=== PATIENT | male | born 1945 | race Caucasian/White ===

== ENCOUNTER 2018-11-10 18:49 | Inpatient (IN) ==
[2018-11-10] MEDS ORDERED: ZOFRAN ODT PO ONE (19:34)
--- NOTE | 2018-11-10 20:05 | Diag Imaging Result Doc PS360 ---
EXAM: CHEST-PORTABLE 11/10/2018 HISTORY: fall, weakness TECHNIQUE: AP portable at at 1956 COMMENT: There is cardiomegaly. There is ill-defined opacity in both lungs particularly in the lower lung field and particularly in the right base. There are no previous studies. There are sternotomy wires. IMPRESSION: Cardiomegaly. Pulmonary edema. Electronically signed by Marcel Solares 11/10/2018 8:03 PM
[2018-11-10] MEDS ORDERED: LASIX IV ONE (20:12)
[2018-11-10 21:10] LABS: URINE SOURCE CATH
[2018-11-10 21:13] LABS: BASO# 0.08 X1000 (0.0-0.2); BASO% 0.6 % (0.0-0.8); EOS# 0.08 X1000 (0.0-0.7); EOS% 0.6 % (0.0-10.0); HEMATOCRIT 35.9 % (42.0-52.0); HEMOGLOBIN 9.3 g/dL (14.0-18.0); IMM GRAN# 0.06 X1000 (0.0-0.04); IMM GRAN% 0.5 % (0.0-0.5); LYMPH# 1.15 X1000 (1.2-3.4); LYMPH% 8.7 % (20.5-51.1); MCH 17.3 PG (27-31); MCHC 25.9 g/dL (33-37); MCV 66.6 FL (81-99); MONO# 1.35 X1000 (0.11-0.59); MONO% 10.2 % (1.7-9.3); MPV 9.2 FL (7.4-10.4); NEUT% 79.4 % (42.2-75.2); PLT 310 X1000 (130-400); RBC 5.39 XMIL (4.7-6.1); WBC 13.22 X1000 (4.8-10.8)
[2018-11-10 21:24] LABS: BILIRUBIN URINE NEGATIVE (NEGATIVE); BLOOD URINE NEGATIVE (NEGATIVE); COLOR YELLOW; GLUCOSE URINE 70 mg/dL (NEGATIVE); KETONE URINE NEGATIVE (NEGATIVE); LEUKOCYTES URINE NEGATIVE (NEGATIVE); NITRITE URINE NEGATIVE (NEGATIVE); PROTEIN URINE 50 mg/dL (NEGATIVE); TURBIDITY URINE CLEAR (CLEAR); UROBILINOGEN URINE 3 mg/dL (NORMAL)
[2018-11-10 21:28] LABS: UR EPITHELIAL CELLS <10 /HPF (<10); URINE BACTERIA NEGATIVE /HPF; URINE RBC <10 /HPF (<10); URINE WBC <10 /HPF (<10)
[2018-11-10 21:36] LABS: URINE CASTS WHITE CELL PRESENT; URINE CRYSTALS NONE SEEN; URINE YEAST NONE SEEN
[2018-11-10 21:43] LABS: ALB/GLOB RATIO 1.4; ALBUMIN 3.4 g/dL (3.5-5.0); CALCIUM 8.7 mg/dL (8.8-10.2); CREATININE 1.2 mg/dL (0.7-1.2); TOTAL BILIRUBIN 0.33 mg/dL (0.20-1.00); TOTAL PROTEIN 5.9 g/dL (6.3-8.3)
[2018-11-10 21:46] LABS: POTASSIUM 6.1 mmol/L (3.5-5.1)
[2018-11-10] MEDS ORDERED: HUMULIN R IV ONE ×2 (21:49→22:49)
[2018-11-10] MEDS ORDERED: CALCIUM GLUCONATE IV PUSH ONE (21:49)
[2018-11-10] MEDS ORDERED: D50W SYRINGE IV ONE (21:50)
[2018-11-10] MEDS ORDERED: SODIUM BICARBONATE 8.4% IV PUSH ONE ×2 (21:51→22:01)
[2018-11-10] MEDS ORDERED: ALBUTEROL 0.5% INH CONC FOR HYPERKALEMIA INH ONE (21:52)
[2018-11-10] MEDS ORDERED: CARDIZEM IV ONE (22:48)
[2018-11-10] MEDS ORDERED: TYLENOL PO PRN (22:55)
[2018-11-10] MEDS ORDERED: CARDIZEM 100 MG/NS 100 MG/100 ML IVPB IV SCH (23:00)
[2018-11-10] MEDS: XOPENEX NEB INH PRN (23:05)
--- NOTE | 2018-11-10 23:06 | PROVIDER DOCUMENTATION ---
This chart was entered by Keily Pena Scribe, acting as scribe for Neto Varghese MD. HPI-General Adult - General Stated Complaint: fall Time Seen by Provider: 11/10/18 19:36 Source: patient, EMS Allergies/Adverse Reactions: Patient Allergies Allergy/AdvReac Type Severity Reaction Status Date / Time No Known Allergies Allergy Verified 11/10/18 19:34 - History of Present Illness -Gen Adult Nature of Presenting Problems: pt is a 73 yr old male presenting via EMS from [facility] post fall, EMS reports pt fell/slid to floor from side of bed, and slid to floor, on arrival here pt only complains of abdominal pain and nausea. No head injury Location of Pain/Injury: reports: abdomen Pain Radiation: reports: no radiation Quality of Pain: reports: dull Severity: reports: mild Onset/Duration: reports: this evening Timing: reports: still present Context/Activities at Onset: reports: rest Modifying Factors: improves with: nothing Associated Symptoms: reports: nausea. denies: back/neck pain, joint pain, vomiting Similar Symptoms Previously?: No Recently seen or treated by another doctor?: No Review of Systems - Adult - REVIEW OF SYSTEMS - ADULT Constitutional: reports: other (weakness) Eyes: reports: no symptoms reported Ears, Nose, Mouth & Throat: reports: no symptoms reported Cardiovascular: reports: edema. denies: chest pain, palpitations, syncope Respiratory: denies: cough, shortness of breath Gastrointestinal: reports: abdominal pain, nausea. denies: vomiting Genitourinary: reports: no symptoms reported Musculoskeletal: denies: back pain, muscle aches, neck pain Integumentary: reports: no symptoms reported Neurological: denies: dizziness/vertigo, headache/migraines Psychiatric: reports: no symptoms reported Endocrine: reports: no symptoms reported Hematologic/Lymphatic: reports: no symptoms reported Allergic/Immunologic: reports: no symptoms reported All Other Systems: Reviewed and Negative Past History - Adult - PAST MEDICAL HISTORY-ADULT Review of Records: reports: Nursing Assessment Review, Medications Reviewed, Social history reviewed & non-contributory. Major Childhood Illnesses: reports: denies history Cardiovascular: reports: denies history Respiratory: reports: denies history Gastrointestinal: reports: denies history Obstetrical/Gynecological: reports: denies history Genitourinary: reports: denies history Musculoskeletal: reports: denies history Neurological: reports: denies history Endocrine/Immune: reports: denies history Other Conditions: reports: denies history - IMMUNIZATION STATUS Childhood Immunizations: See Nurse Assessment Flu Vaccine: See Nurse Assessment - FAMILY HISTORY Family History: reviewed, not pertinent - SOCIAL HISTORY Smoking: denies Substance Use: denies Living Situation: care facility Physical Exam-General - PHYSICAL EXAM-ADULT Initial Vital Signs Reviewed: Yes - CONSTITUTIONAL General Appearance: alert, moderate distress, obese - EYES Eyes: PERRL/EOMI - HEAD, EARS, NOSE, MOUTH & THROAT HENMT: normocephalic/atraumatic, moist mucous membranes - NECK Neck: non-tender, full range of motion, supple, normal inspection - RESPIRATORY Respiratory: chest non-tender, decreased breath sounds, crackles, other (on oxygen via nasal canulla) - CARDIOVASCULAR Cardiovascular: normal peripheral pulses, tachycardia, irregularly irregular - GASTROINTESTINAL (ABDOMEN) Abdominal Exam: normal bowel sounds, non tender, soft. negative: rebound, tenderness - GENITOURINARY Male Genitalia: other (scrotal edema) - LYMPHATIC Lymphatic: no adenopathy - MUSCULOSKELETAL Back Exam: no CVA tenderness, no vertebral tenderness Extremity: other (4+ bilateral lower extremity edema, 3+ RUE edema) - SKIN Integumentary: normal color, normal turgor, warm/dry - NEUROLOGIC Neurologic: grossly normal, no motor/sensory deficits - PSYCHIATRIC Psych/Mental Status: normal mood/affect Progress - PLAN OF CARE/RESULTS Progress/Plan/Lab Results: Vital Signs - 8 hr 11/10/18 18:52 Temperature 98.5 F Pulse Rate 110 H Respiratory Rate 18 Blood Pressure 146/82 O2 Sat by Pulse Oximetry 96 Orders Category Date Time Status CHEST-PORTABLE [RAD] Stat Exams 11/10/18 19:46 Ordered CBC WITH ELECTRONIC DIFF [HEME] Stat Lab 11/10/18 19:45 Uncollected CK PROFILE [SP CHEM] Stat Lab 11/10/18 19:45 Uncollected COMPREHENSIVE METABOLIC PANEL [CHEM] Stat Lab 11/10/18 19:45 Uncollected PRO B-NATRIURETIC PEPTIDE Stat Lab 11/10/18 19:45 Uncollected URINALYSIS W/POSS RFLX CULT [URINALYSIS] Stat Lab 11/10/18 19:45 Uncollected Ondansetron Odt [Zofran Odt] Med 11/10/18 19:34 Discontinued 4 mg PO NOW ONE EKG [EKG] Stat Ther 11/10/18 19:45 Ordered Result Diagrams: 11/10/18 20:51 11/10/18 20:51 - EKG 1 Time of EKG reading by physician:: 21:58 EKG Read and Signed by:: Neto Varghese EKG Interpretation (*Must complete 3 of following elements*): Abnormal ( inferoir infarct-age undetermined, anterolateral infarct-age undetermined) Rate: 118 Rhythm: afib-with rvr [place]: left QRS: normal NV Interval: normal ST Wave: normal - XRAY 1 XRAY Study: Chest Impression: Abnormal ( EXAM: CHEST-PORTABLE 11/10/2018 HISTORY: fall, weakness TECHNIQUE: AP portable at at 1955 COMMENT: There is cardiomegaly. There is ill-defined opacity in both lungs particularly in the lower lung field and particularly in the right base. There are no previous studies. There are sternotomy wires. IMPRESSION: Cardiomegaly. Pulmonary edema. Electronically signed by Marcel Solares 11/10/2018 8:03 PM 11/10/182002 Interpreting Physician: Marcel Solares MD Dictated Date/Time: 11/10/182001) - CONSULTS/PCP/HOSPITALIST Notification #1 *Consult/PCP/Hospitalist*: Dr. Zavala Time Discussed: 22:30 Consult Disposition: Admit Departure - Departure Date of Disposition Decision: 11/10/18 Time of Disposition Decision: 23:06 DIAGNOSIS: Hyperkalemia Pulmonary edema Qualifiers: Chronicity: acute Qualified Code(s): J81.0 - Acute pulmonary edema Fluid overload Qualifiers: Hypervolemia type: unspecified Qualified Code(s): E87.70 - Fluid overload, unspecified Disposition: ADMITTED INPATIENT 09 Certified Medical Emergency: Emergent Condition: Critical - Critical Care Note This patient required my direct & personal management of CC.: Yes Total Time (mins): 60 Critical Care Statement: This patient required my direct personal management to treat or rule out processes, the absence of which, could potentiallly result in sudden, clinically significant life or limb threatening deterioration. Attestation - Physician/ PABLITO Attestation The physician spent face to face time with patient:: Yes Advanced Practice Provider documentation review:: Supervising physician onsite and consulted in the evaluation and care of this patient. The physician did have a face to face encounter with the patient. This chart was documented by the indicated scribe, (Keily Pena Scribe) and accurately reflects the services I performed and decisions made by Halima duong Kofi X., MD, as attested by the provider's signature.
[2018-11-10 23:10] LABS: ALLEN TEST YES; BE 6.5 mmoll (-3.0-3.0); BLOOD TYPE ARTERIAL; HCO3-(ACT) 29.9 mmoll (20.0-26.0); METHB 1.2 % (0.0-1.5); MODALITY CANNULA; O2(CT) 11.9 mL/dL (15.0-23.0); O2HB 91.2 % (95.0-99.0); PO2(98.6) 67 mmHg (60-100); SAMPLE BLOOD; SAO2 94.3 % (95.0-100.0); THB 9.2 g/dL (11.5-17.4); pH(98.6) 7.33 (7.35-7.45)
[2018-11-10 23:15] LABS: PCO2(98.6) 64 mmHg (35-45)
[2018-11-10 23:31] LABS: HEMOGLOBIN A1C 10.2 % (4.8-6.0)
--- NOTE | 2018-11-11 02:23 | HISTORY AND PHYSICAL ---
PRIMARY CARE PROVIDER: No primary care provider noted. CHIEF COMPLAINT: Fall at long-term. HISTORY OF PRESENT ILLNESS: Mr. Herrera is a 73-year-old male who came to our emergency room reportedly from [facility] after having a fall. He is a very poor historian. He is lethargic, disoriented times 3. He did note that he was having some abdominal pain and nausea. Denied any other symptoms. Was mostly nonconversant during the interview. He could not give any past medical history other than he believes he has been told he has atrial fibrillation. A current diagnosis list from [facility] showed vitamin D deficiency, hypertensive heart disease, heart failure, COPD, diabetes mellitus type 2, chronic atrial fibrillation, cardiomegaly, malignant neoplasm of the prostate, iron deficiency anemia. Previous surgical history was noted as coronary artery bypass graft. Other surgeries are unknown. SOCIAL HISTORY: Is at [facility] in rehab from what I understand. I am unsure of his living situation. He has a history of tobacco use. I am unsure if he currently smokes. I am unsure about his alcohol status. ALLERGIES: No known drug allergies. HOME MEDICATIONS: A list was not able to be obtained. An order was placed for Nursing to obtain a list of home medicines from [facility] when possible. REVIEW OF SYSTEMS: The patient said he had abdominal pain and nausea. He neither denied nor confirmed any other complaints. Pertinent positives for admission are above in the HPI. All other systems could not thoroughly be reviewed. PHYSICAL EXAMINATION: VITAL SIGNS: Temperature 98.5, pulse 150, atrial fibrillation, respirations 26 , oxygen 91% on 3 L nasal cannula, blood pressure 136/72. GENERAL: Chronically ill-appearing 73-year-old male lying in the ER stretcher. He is lethargic, disoriented times 3. He is in no acute distress at this time. HEENT: Head is atraumatic, normocephalic. Pupils equal, round, reactive to light. Extraocular eye movements intact. Sclerae are anicteric. Conjunctiva is mildly pale. Oral mucosa is moist. NECK: Supple. Mild JVD. Trachea is midline. No cervical lymphadenopathy. CARDIAC: Irregularly irregular. Tachycardic. No murmurs, gallops, rubs. LUNGS: Crepitations noted throughout bilateral lung bases. Decreased bilaterally. Expiratory wheeze. No rhonchi. No rales. Symmetric rise and fall with respirations. ABDOMEN: Protuberant, soft, nondistended, nontender. Nonpitting edema noted to abdominal wall. Bowel sounds hypoactive all 4 quadrants. No pulsatile mass. No organomegaly. EXTREMITIES: Two-plus pitting edema to bilateral upper extremities, 3-plus pitting edema to bilateral lower extremities. Two-plus pedal pulses bilaterally. GENITOURINARY: No bladder distention. Johnson catheter to be placed. Scrotal edema noted. Otherwise deferred. NEUROLOGICAL: Lethargic, disoriented times 3. Cranial nerves II through XII could not be fully evaluated. SKIN: Warm, dry, intact. No acute lesions or rash. Mildly pale. DIAGNOSTIC DATA: CT of the head is pending. Chest x-ray shows cardiomegaly with increased pulmonary vascular congestion right greater than left. LABORATORY DATA: WBC 13.22. Hemoglobin 9.3. Hematocrit 35.9. Platelet count 310. ABG: pH 7.33, pCO2 of 64, pO2 of 67, bicarbonate 29.9 on 3 L nasal cannula. Sodium 139. Potassium 6.1. Chloride 99. Carbon dioxide 29. BUN 28. Creatinine 1.2. Glucose 329. ProBNP 4756. Urine unremarkable. ASSESSMENT AND PLAN: 1. Congestive heart failure with exacerbation. Patient does not have an echocardiogram on file. He actually has no records at this hospital. We will order echocardiogram in the a.m. to evaluate ejection fraction. I am unsure what home medications he takes at this point. Nursing to work on a list of reconciling home medications. He was given 80 mg of Lasix in the emergency room. We will continue Lasix 40 mg IV q.12 hours. Restart other home medications when available. We will review echocardiogram. 2. Respiratory acidosis. Patient is hypercapneic. He had noted myoclonus on examination and was disoriented times 3. We will start BiPAP at this time to hyperventilate the patient. He was partially compensated on his blood gas. Hopefully, as the patient diureses with the Lasix his lab values will come back into line. 3. Metabolic encephalopathy. See above. 4. Hyperkalemia. The patient's potassium was 6.1. He was treated in the emergency room with D50, insulin, albuterol, sodium bicarbonate and calcium gluconate for cardiac muscle stabilization. EKG was obtained that showed the patient to be in atrial fibrillation with a rapid ventricular rate. 5. Atrial fibrillation with a rapid ventricular rate. Cardizem 10 mg IV push will be given in the emergency room and then started on Cardizem 5 mg IV per drip to be titrated for a heart rate less than 110. I am unsure if the patient is chronically anticoagulated. We will defer at this time as he has fallen at the long-term and a CT scan has not been obtained of his head. 6. Diabetes mellitus type 2 with hyperglycemia. Check hemoglobin A1c. Fingerstick blood sugars q.4 hours. Further recommendations per patient clinical course. Dictated by ALEXA Castellanos for Cathryn Zavala MD cc: ALEXA Castellanos MD Independent exam performed at bedside with HOTEL RECEPTIONIST. Pt was notably had diffuse wheezing with decreased air entry and crepitations. Consider Digoxin IV if HR still elevated and hyperkalemia corrected. Recheck BMP. Suspect hyperkalemia could be due to Type 4 RTA if it recurs. Check ABG in the a.m. MTDD
[2018-11-11] MEDS: HUMALOG SUBQ SCH ×6 (02:26→21:00)
[2018-11-11 06:25] LABS: BASO% 0.9 % (0.0-0.8); EOS# 0.03 X1000 (0.0-0.7); EOS% 0.3 % (0.0-10.0); HEMATOCRIT 34.2 % (42.0-52.0); HEMOGLOBIN 8.9 g/dL (14.0-18.0); IMM GRAN# 0.05 X1000 (0.0-0.04); IMM GRAN% 0.4 % (0.0-0.5); LYMPH# 0.85 X1000 (1.2-3.4); LYMPH% 7.6 % (20.5-51.1); MCH 17.5 PG (27-31); MCV 67.3 FL (81-99); MONO# 1.42 X1000 (0.11-0.59); MONO% 12.7 % (1.7-9.3); MPV 9.7 FL (7.4-10.4); NEUT# 8.74 X1000 (1.4-6.5); NEUT% 78.1 % (42.2-75.2); PLT 289 X1000 (130-400); RBC 5.08 XMIL (4.7-6.1); RDW 23.4 % (11.5-14.5); WBC 11.19 X1000 (4.8-10.8)
[2018-11-11 07:12] LABS: CALCIUM 8.3 mg/dL (8.8-10.2); CREATININE 1.3 mg/dL (0.7-1.2); POTASSIUM 5.5 mmol/L (3.5-5.1)
[2018-11-11 07:23] LABS: MAGNESIUM 2.3 mg/dL (1.5-2.7)
[2018-11-11] MEDS: XOPENEX NEB INH PRN ×4 (07:31→23:30)
--- NOTE | 2018-11-11 07:41 | Diag Imaging Result Doc PS360 ---
EXAM: CT HEAD W/O CONTRAST 11/10/2018 HISTORY: fall, AMS TECHNIQUE: This exam was performed using automated exposure control, adjustment of mA or kV according to patient size, and/or use of iterative reconstruction technique. COMMENT: There is moderate to severe generalized cerebral atrophy. There is no evidence of mass effect, bleed, abnormal extra-axial fluid collection, or hydrocephalus. There is calcification in the left vertebral and basilar as well as both internal carotid arteries. The calvarium is intact. The visualized paranasal sinuses are clear. There are no previous studies. IMPRESSION: No evidence of acute intracranial disease. Electronically signed by Marcel Solares 11/11/2018 7:39 AM
[2018-11-11] MEDS: LASIX IV SCH ×2 (10:07→23:34)
[2018-11-11] MEDS ORDERED: LEVOPHED 8 MG in D5 1/2 NS 250 ML IV SCH (12:15)
[2018-11-11] MEDS ORDERED: BUSPAR PO PRN (12:17)
[2018-11-11] MEDS: PLAVIX PO SCH (12:30)
[2018-11-11] MEDS ORDERED: NICODERM PATCH TD SCH (12:30)
[2018-11-11] MEDS ORDERED: CELEXA PO SCH (12:30)
[2018-11-11] MEDS ORDERED: NON-FORMULARY MED (Buprenorphine [Butrans] 1 EACH) TD SCH (12:30)
[2018-11-11 14:53] LABS: ALB/GLOB RATIO 1.2; ALBUMIN 2.8 g/dL (3.5-5.0); CALCIUM 8.2 mg/dL (8.8-10.2); CREATININE 1.4 mg/dL (0.7-1.2); POTASSIUM 5.4 mmol/L (3.5-5.1); TOTAL BILIRUBIN 0.38 mg/dL (0.20-1.00); TOTAL PROTEIN 5.2 g/dL (6.3-8.3)
--- NOTE | 2018-11-11 19:24 | PROGRESS NOTE ---
DATE: 11/11/2018 Patient seen and examined in the ER a 71-year-old male who is on BiPAP, he is somewhat confused, frequently demands BiPAP be taken off. PHYSICAL: Is afebrile, pulse 74,. Respiratory 16 to 24, BP 94/56.General: Patient is obese male who is in moderate distress from a respiratory standpoint, he is lethargic, disoriented chronically ill appearing . HEENT: Normocephalic. Neck: Supple. No current JVD. No masses. CV: Irregular rate irregular rhythm currently he is rate controlled, he had been in atrial fibrillation earlier, we will continue to try to wean down his Cardizem as tolerated. Hopefully this will improve his blood pressure. Chest: Clear nonlabored although decreased. He is not currently having any wheezing although given his body habitus and BiPAP it is difficult to auscultate. Abdomen: Soft, obese, nondistended. Extremities: He is noted move all extremities. He has 2+ edema in the bilateral lower extremities as well as upper extremity. Neuro: He is awake, he is confused, disoriented. ASSESSMENT: 1. Congestive heart failure exacerbation . 2. Atrial fibrillation with rapid ventricular response currently he is rate controlled. We are attempting to wean his Cardizem. 3. Hyperkalemia improved. 4. Metabolic encephalopathy. PLAN: Will continue patient the hospital, continue BiPAP, continue to follow, hopefully he will continue to improve we may have to sedate him to continue BiPAP, will follow. Greater than 30 minutes was spent in total care. cc: Norris Martínez MD
[2018-11-11] MEDS ORDERED: SEROQUEL PO SCH (21:00)
[2018-11-11] MEDS: SEROQUEL PO SCH (23:34)
[2018-11-12] MEDS: CARDIZEM 100 MG in NS 80 ML IV SCH ×2 (01:28→12:18)
[2018-11-12] MEDS: PATIENT'S OWN MED PO SCH ×3 (02:06→21:16)
[2018-11-12] MEDS: HUMALOG SUBQ SCH ×6 (02:06→21:13)
[2018-11-12] MEDS: XOPENEX NEB INH PRN ×2 (03:11→07:19)
[2018-11-12 04:54] LABS: ALLEN TEST YES; BE 8.9 mmoll (-3.0-3.0); BLOOD TYPE ARTERIAL; HCO3-(ACT) 31.8 mmoll (20.0-26.0); METHB 1.2 % (0.0-1.5); O2(CT) 13.2 mL/dL (15.0-23.0); O2HB 94.4 % (95.0-99.0); PO2(98.6) 81 mmHg (60-100); SAMPLE BLOOD; SAO2 97.3 % (95.0-100.0); THB 9.9 g/dL (11.5-17.4); pH(98.6) 7.41 (7.35-7.45)
[2018-11-12 04:56] LABS: MODALITY BI PAP; PCO2(98.6) 55 mmHg (35-45)
[2018-11-12] MEDS: LASIX IV SCH (08:27)
[2018-11-12] MEDS: NICODERM PATCH TD SCH (08:33)
--- NOTE | 2018-11-12 09:36 | ECHO REPORT ---
ORDER DATE: 11/11/2018 MEASUREMENTS: Left ventricular end-diastolic diameter 5.4, end-systolic 3.9, septal thickness 1.4, posterior wall thickness 1.2, aortic root 3.4, left atrium 4.2. SUMMARY: 1. Technically difficult study due to limited acoustic window quality. 2. The aortic valve is trileaflet and demonstrates mild to moderate sclerosis with mildly reduced aortic valve leaflet mobility. The aortic valve area by Doppler is 1.7 cm2. Mild aortic stenosis is suggested. Mitral and tricuspid valves are without evidence of structural abnormality with mild mitral regurgitation and mild tricuspid regurgitation. Pulmonic valve is not well demonstrated. The estimated systolic PA pressure by Doppler is 40 to 45 mmHg, suggesting mild pulmonary hypertension. The aortic root is normal in size. 3. Normal left ventricular chamber size with mild concentric left ventricular hypertrophy suggested. The estimated left ventricular ejection fraction is approximately 50%. No obvious wall motion abnormality can be appreciated. The left atrium is mildly enlarged. The right atrium and right ventricle grossly normal in size with grossly preserved right ventricular systolic function. 4. No pericardial effusion. 5. Appearance of inferior vena cava suggests elevated central venous pressure. cc: MD Brian Larsen CRNP
[2018-11-12] MEDS: PLAVIX PO SCH (09:53)
[2018-11-12] MEDS: CELEXA PO SCH (09:53)
[2018-11-12 10:25] LABS: BASO# 0.05 X1000 (0.0-0.2); BASO% 0.5 % (0.0-0.8); EOS# 0.17 X1000 (0.0-0.7); EOS% 1.8 % (0.0-10.0); HEMATOCRIT 31.2 % (42.0-52.0); HEMOGLOBIN 8.2 g/dL (14.0-18.0); IMM GRAN# 0.02 X1000 (0.0-0.04); IMM GRAN% 0.2 % (0.0-0.5); LYMPH# 0.83 X1000 (1.2-3.4); LYMPH% 8.6 % (20.5-51.1); MCH 17.8 PG (27-31); MCHC 26.3 g/dL (33-37); MCV 67.8 FL (81-99); MONO# 1.03 X1000 (0.11-0.59); MONO% 10.7 % (1.7-9.3); MPV 9.4 FL (7.4-10.4); NEUT# 7.54 X1000 (1.4-6.5); NEUT% 78.2 % (42.2-75.2); PLT 228 X1000 (130-400); RDW 24.6 % (11.5-14.5); WBC 9.64 X1000 (4.8-10.8)
[2018-11-12 11:02] LABS: CALCIUM 7.9 mg/dL (8.8-10.2); CREATININE 1.2 mg/dL (0.7-1.2)
[2018-11-12] MEDS: ASPIRIN PO SCH (15:25)
--- NOTE | 2018-11-12 15:26 | PROGRESS NOTE ---
DATE: 11/12/2018 INTERVAL HISTORY: The patient on BiPAP with slightly improved respiratory status. Remains quite encephalopathic. He withdraws to noxious stimuli occasionally, slight movement of voice, but nothing purposeful and follows no commands. Afebrile. No other acute events overnight. REVIEW OF SYSTEMS: Unable to obtain secondary to patient mental status. LABORATORY: WBC 9.6, hemoglobin 8.2, hematocrit 31.2, and platelets 228,000. ABG with pH 7.4, CO2 55, PO2 81, O2 saturation 97.3 on 40% oxygen via BiPAP. Potassium 5, sodium 140, BUN 32, creatinine 1.2, glucose 132. PHYSICAL EXAMINATION: Vitals: T-max 98.6 degrees. Lowest temperature 96.6 degrees, pulse 82, respirations 15, blood pressure 129/74, O2 saturation 95% on 40% BiPAP. General: No acute distress. HEENT: Normocephalic, atraumatic. Moist mucous membranes. No cervical adenopathy. Cardiovascular: irregular rhythm. normal rate. No murmurs, rubs, or gallops. Pulmonary: Decreased air entry throughout. Scattered rhonchi and bibasilar crackles. Abdomen: Soft , nontender, and nondistended. Bowel sounds decreased but positive. Extremities: Peripheral pulses decreased but intact. No clubbing or cyanosis. Trace lower extremity edema bilaterally. Psychiatric: Minimally responsive to voice and withdraws to noxious stimuli. Occasional nonpurposeful movement of all extremities, but does not follow commands or speak. Neurologic: Exam limited by patient's mental status. Pupils equal, round, and reactive to light. No facial asymmetry. Occasional nonpurposeful movement of all extremities. No focal deficit identified. Skin: No new rashes or lesions identified. ASSESSMENT AND PLAN: 1. Acute hypoxic and acute on chronic hypercapnic respiratory failure: Multifactorial with acute on chronic diastolic congestive heart failure, COPD with likely exacerbation , and acute pulmonary edema. No wheezing today and hypercapnia improved on this morning' s ABG. Some improvement in oxygenation with diuresis. We will continue b.i.d. Lasix and wean BiPAP as possible. Continue nebulizer treatments. Given improvement in hypercapnia and lack of wheezing currently, we will defer steroid treatment at this time. Continue to monitor closely in the ICU. 2. Atrial fibrillation with rapid ventricular response, rate controlled on diltiazem drip. Continue to monitor. Await Cardiology recommendations. 3. Hyperkalemia. Initial potassium 6.1, but now resolved with a potassium of 5.0 this morning. 4. Likely CKD 3. Creatinine 1.2 and largely stable. No baseline for confirmation, but suspect this is CKD rather than an acute kidney injury. 5. Diabetes. Reasonable glucose control on current sliding scale insulin. Continue to monitor. 6. Tobacco abuse. Continue nicotine patch. 7. Coronary artery disease. We will restart aspirin and Plavix when able to take p.o. 8. Anemia, stable hemoglobin and hematocrit. Iron studies pending. No signs or symptoms of acute bleeding at this time. Continue to monitor blood counts. 9. Deep vein thrombosis prophylaxis. SCD's. [facility]
--- NOTE | 2018-11-12 19:12 | Diag Imaging Result Doc PS360 ---
EXAM: CHEST-PORTABLE 11/12/2018 HISTORY: resp failure TECHNIQUE: AP portable at 1903 COMMENT: There is cardiomegaly. There is ill-defined opacity in both lower lobes obscuring the hemidiaphragms bilaterally. This is worse than on 11/10/2018. IMPRESSION: Worsened pulmonary edema and/or pneumonia. Electronically signed by Marcel Solares 11/12/2018 7:08 PM
[2018-11-12] MEDS: SEROQUEL PO SCH (21:12)
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
[2018-11-13] MEDS: HUMALOG SUBQ SCH ×6 (00:08→21:59)
[2018-11-13] MEDS: CARDIZEM 100 MG in NS 80 ML IV SCH (04:21)
--- NOTE | 2018-11-13 07:05 | EKG Report ---
Test Performed on : 11/11/2018 06:22:22 AM Test Reason : chest pain Blood Pressure : / mmHG Vent. Rate : 080 BPM Atrial Rate : 326 BPM P-R Int : 000 ms QRS Dur : 102 ms QT Int : 380 ms P-R-T Axes : 000 -38 116 degrees QTc Int : 438 ms Atrial fibrillation. Left axis deviation Inferior infarct (cited on or before 10-NOV-2018) Anterior infarct (cited on or before 10-NOV-2018) Abnormal ECG When compared with ECG of 10-NOV-2018 21:58, (Unconfirmed) Nonspecific T wave abnormality, worse in Anterolateral leads Confirmed by Garcia ORELLANA, Gerardo Singh ([id number]) on 11/13/2018 9:41:13 AM
--- NOTE | 2018-11-13 07:33 | EKG Report ---
Test Performed on : 11/10/2018 9:58:48 PM Test Reason : weakness Blood Pressure : / mmHG Vent. Rate : 118 BPM Atrial Rate : 096 BPM P-R Int : 000 ms QRS Dur : 102 ms QT Int : 290 ms P-R-T Axes : 000 -53 099 degrees QTc Int : 406 ms Atrial fibrillation. with rapid ventricular response. Left axis deviation Inferior infarct , age undetermined Anterolateral infarct , age undetermined Abnormal ECG No previous ECGs available Unconfirmed Result
[2018-11-13 08:24] LABS: BASO# 0.03 X1000 (0.0-0.2); BASO% 0.4 % (0.0-0.8); EOS# 0.17 X1000 (0.0-0.7); EOS% 2.1 % (0.0-10.0); IMM GRAN# 0.02 X1000 (0.0-0.04); IMM GRAN% 0.3 % (0.0-0.5); LYMPH# 0.86 X1000 (1.2-3.4); LYMPH% 10.9 % (20.5-51.1); MCH 17.6 PG (27-31); MCHC 25.8 g/dL (33-37); MCV 68.1 FL (81-99); MONO# 0.75 X1000 (0.11-0.59); MONO% 9.5 % (1.7-9.3); MPV 9.1 FL (7.4-10.4); NEUT# 6.09 X1000 (1.4-6.5); NEUT% 76.8 % (42.2-75.2); PLT 220 X1000 (130-400); RBC 4.55 XMIL (4.7-6.1); RDW 24.8 % (11.5-14.5); WBC 7.92 X1000 (4.8-10.8)
[2018-11-13 08:32] LABS: AGAP 12; BUN 27 mg/dL (8-22); CHLORIDE 99 mmol/L (98-107); COSMO 285; ESTIMATED GFR > 60; GLUCOSE 109 mg/dL (70-104); IRON SATURATION 6 %; POTASSIUM 4.9 mmol/L (3.5-5.1); SODIUM 140 mmol/L (136-145); TCO2 29 mmol/L (25-35); TIBC 283 ug/dL; TOTAL IRON 18 ug/dL (53-167); UNBOUND IRON 265 ug/dL (112-346)
[2018-11-13] MEDS: ASPIRIN PO SCH (08:43)
[2018-11-13] MEDS: LASIX IV SCH (08:44)
[2018-11-13] MEDS: NICODERM PATCH TD SCH (08:44)
[2018-11-13] MEDS: PATIENT'S OWN MED PO SCH ×2 (08:44→21:57)
[2018-11-13] MEDS: PLAVIX PO SCH (08:44)
[2018-11-13] MEDS: CELEXA PO SCH (08:45)
[2018-11-13 08:48] LABS: ANISOCYTOSIS 2+; BANDS 2 % (0-1); EOS 4 % (1-10); LYMPHS 14 % (21-51); SEGS 80 % (42-75)
[2018-11-13 08:49] LABS: HYPOCHROM 2+; MICROCYTOSIS 3+; POIKILOCYTOSIS 1+; TARGET CELLS OCCASIONAL
[2018-11-13] MEDS ORDERED: CALMOSEPTINE OINTMENT TOP PRN (11:14)
--- NOTE | 2018-11-13 15:53 | PROGRESS NOTE ---
DATE: 11/13/2018 SUBJECTIVE: Patient is resting comfortably in bed. Not in any obvious distress. OBJECTIVE: Vital signs: Temperature 98.4 degrees, pulse 92, respirations 20, blood pressure is 101/71, oxygen saturation 94%. Cardiovascular: S1-S2, tachycardic. Respiratory: No rales or rhonchi noted. Abdomen: Soft, nontender. No masses felt. Extremities: No evidence of significant edema. LABS: WBC 7.9, hematocrit is 31, with a platelet count of 226,000. Sodium 140, potassium 4.9, chloride 99, bicarb 29, BUN 27, creatinine 1.0. ASSESSMENT AND PLAN: 1. Acute hypercapnic respiratory failure. Use BiPAP as needed to keep saturations above 90. 2. Atrial fibrillation. Continue rate controlling agent. Cardiology following. 3. Hyperkalemia has been resolved. 4. Chronic kidney disease. Follow up on renal function. Avoid nephrotoxic agents. 5. Diabetes mellitus. Continue sliding scale insulin as well as more blood sugar monitoring. 6. Coronary artery disease. Continue antiplatelet agent. Asymptomatic. 7. Anemia. Follow up on hemoglobin, hematocrit, transfuse packed red blood cells as needed. 8. Deep vein thrombosis prophylaxis. Sequential compression devices. cc: Ty Isidro MD
[2018-11-13] MEDS ORDERED: LASIX IV ONE (17:01)
[2018-11-13] MEDS: TOPROL XL PO SCH (17:54)
--- NOTE | 2018-11-13 18:17 | PROGRESS NOTE ---
DATE: 11/13/2018 SUBJECTIVE: The patient continues without chest discomfort or shortness of breath, on supplemental oxygen per nasal cannula at 4 L/minute. OBJECTIVE: Vital Signs: Blood pressure 103/59, heart rate 90 and irregular with ECG monitor showing atrial fibrillation. He is on intravenous Cardizem at 5 mg/hour. Oxygen saturation 97% on nasal cannula oxygen at 4 L/minute. Neck: Jugular venous distention cannot be appreciated. Chest: Auscultation of the chest reveals a few inspiratory crackles in the bases. Cardiac: Exam reveals an irregular rate and rhythm. Extremities: There is no evidence of peripheral edema. DIAGNOSTIC STUDIES: Chest x-ray yesterday evening noteworthy for cardiomegaly. Obscured hemidiaphragms, more so on the right, suggesting pleural effusion and evidence of pulmonary edema and/or pneumonia. LABORATORY DATA: White blood cell count 7.9, hematocrit 31.0, hemoglobin 8.0, platelet count 220,000. Sodium 140, potassium 4.9, chloride 99, carbon dioxide 29, BUN 27, creatinine 1.0, glucose 109. Troponin 0.067. IMPRESSION: 1. Hypoxemic/hypercapnic respiratory failure due to a combination of acute diastolic heart failure and chronic obstructive pulmonary disease. Patient clinically improving. However, diuresis thus far seems to be less than anticipated necessary given appearance of chest x-ray last night. 2. Chronic atrial fibrillation. Rate controlled. 3. Atherosclerotic coronary disease with history of previous coronary bypass grafting. Patient continues without angina. 4. Significant chronic obstructive pulmonary disease. 5. Obesity. 6. Hypertensive heart disease. 7. Type 2 diabetes mellitus. RECOMMENDATIONS: 1. Continue further diuresis and give an additional dose of intravenous Lasix this evening. 2. Initiate metoprolol succinate 25 mg daily in an effort to control heart rate and allow outpatient to come off of intravenous Cardizem. His records indicate that he was on metoprolol 25 mg p.o. daily prior to admission. 3. Follow up chest x-ray in a.m. cc: Mario Alberto Lind MD
[2018-11-13] MEDS: SEROQUEL PO SCH (21:59)
[2018-11-14] MEDS: HUMALOG SUBQ SCH ×6 (01:40→20:03)
[2018-11-14] MEDS: CARDIZEM 100 MG in NS 80 ML IV SCH (03:41)
[2018-11-14 05:54] LABS: ALLEN TEST YES; BE 9.4 mmoll (-3.0-3.0); BLOOD TYPE ARTERIAL; HCO3-(ACT) 32.1 mmoll (20.0-26.0); METHB 0.6 % (0.0-1.5); O2(CT) 13.4 mL/dL (15.0-23.0); PO2(98.6) 56 mmHg (60-100); SAMPLE BLOOD; SAO2 91.4 % (95.0-100.0); THB 10.7 g/dL (11.5-17.4)
[2018-11-14 05:56] LABS: MODALITY CANNULA
[2018-11-14 05:57] LABS: O2HB 88.7 % (95.0-99.0); PCO2(98.6) 58 mmHg (35-45)
[2018-11-14 06:17] LABS: AGAP 11; ALB/GLOB RATIO 1.3; ALBUMIN 2.6 g/dL (3.5-5.0); ALKALINE PHOSPHATASE 71 U/L (32-122); BUN 26 mg/dL (8-22); CALCIUM 7.8 mg/dL (8.8-10.2); CHLORIDE 97 mmol/L (98-107); COSMO 282; CREATININE 0.9 mg/dL (0.7-1.2); ESTIMATED GFR > 60; GLUCOSE 126 mg/dL (70-104); GOT 17 U/L (10-34); GPT 13 U/L (10-44); POTASSIUM 4.6 mmol/L (3.5-5.1); SODIUM 138 mmol/L (136-145); TCO2 30 mmol/L (25-35); TOTAL PROTEIN 4.6 g/dL (6.3-8.3)
[2018-11-14 06:22] LABS: BASO# 0.05 X1000 (0.0-0.2); BASO% 0.8 % (0.0-0.8); EOS# 0.21 X1000 (0.0-0.7); EOS% 3.3 % (0.0-10.0); HEMATOCRIT 29.8 % (42.0-52.0); HEMOGLOBIN 7.7 g/dL (14.0-18.0); IMM GRAN# 0.03 X1000 (0.0-0.04); IMM GRAN% 0.5 % (0.0-0.5); LYMPH% 15.8 % (20.5-51.1); MCH 17.6 PG (27-31); MCHC 25.8 g/dL (33-37); MCV 68.2 FL (81-99); MONO# 0.75 X1000 (0.11-0.59); MONO% 11.9 % (1.7-9.3); MPV 8.7 FL (7.4-10.4); NEUT# 4.28 X1000 (1.4-6.5); NEUT% 67.7 % (42.2-75.2); PLT 221 X1000 (130-400); RBC 4.37 XMIL (4.7-6.1); RDW 24.8 % (11.5-14.5); WBC 6.32 X1000 (4.8-10.8)
--- NOTE | 2018-11-14 07:32 | Diag Imaging Result Doc PS360 ---
EXAM: CHEST-PORTABLE 11/14/2018 HISTORY: CHF and COPD, diuresing TECHNIQUE: AP portable at 0506 COMMENT: There is cardiomegaly. There is interstitial opacity generally. There is a right pleural effusion. Compared to 11/12/2018 this has improved slightly. IMPRESSION: Cardiomegaly, pulmonary edema and right pleural effusion. Electronically signed by Marcel Solares 11/14/2018 7:30 AM
[2018-11-14] MEDS: LASIX IV SCH (08:15)
[2018-11-14] MEDS: PATIENT'S OWN MED PO SCH ×2 (08:52→20:03)
[2018-11-14] MEDS: TOPROL XL PO SCH (09:32)
[2018-11-14] MEDS: ASPIRIN PO SCH (09:32)
[2018-11-14] MEDS: NICODERM PATCH TD SCH (09:33)
[2018-11-14] MEDS: CELEXA PO SCH (09:33)
[2018-11-14] MEDS: PLAVIX PO SCH (09:34)
--- NOTE | 2018-11-14 16:31 | PROGRESS NOTE ---
DATE: 11/14/2018 SUBJECTIVE: Patient continues without shortness of breath on supplemental oxygen per nasal cannula. There has been no chest pain. OBJECTIVE: Vital Signs: Blood pressure 124/76, heart rate 83 and regular. Oxygen saturation 94% on nasal cannula oxygen at 6 L/minute. There is no significant jugular distention appreciated. Chest: Auscultation of the chest reveals diminished breath sounds in right base posteriorly. Cardiac Exam: Reveals a irregular rate and rhythm without appreciable murmur or gallop. Extremities: Demonstrate mild edema. LABORATORY DATA: Includes a white blood cell count of 6.32, hematocrit 29.8, hemoglobin 7.7, platelet count 221,000. Sodium 138, potassium 4.6, chloride 97, carbon dioxide 30, BUN 26, creatinine 0.9. Glucose 126. Albumin 2.6. Chest x-ray is a technically difficult film. Right pleural effusion is evident. IMPRESSION: 1. Hypoxemic/hypercapnic respiratory failure due to combination of acute diastolic heart failure and chronic obstructive pulmonary disease. Patient clinically improving with diuresis. 2. Chronic atrial fibrillation. Rate controlled. 3. Atherosclerotic coronary disease with history of previous coronary bypass grafting. The patient continues without angina. 4. Significant chronic obstructive pulmonary disease. 5. Obesity. 6. Hypertensive heart disease. 7. Type 2 diabetes mellitus. RECOMMENDATIONS: 1. Continue further diuresis with additional IV Lasix this evening. 2. Discontinue intravenous Cardizem. Will adjust oral metoprolol further as needed to maintain control of heart rate. cc: Mario Alberto Lind MD
[2018-11-14] MEDS ORDERED: LASIX IV ONE (17:00)
--- NOTE | 2018-11-14 18:06 | PROGRESS NOTE ---
DATE: 11/14/2018 SUBJECTIVE: The patient is resting comfortably in bed. He is a little lethargic this morning. OBJECTIVE: Vital Signs: Temperature 97.5 degrees, blood pressure 124/76, heart rate 83, respirations 21, O2 saturation 94% on 6 L nasal cannula. General: This is an elderly male lying in bed in no acute distress. Heart: S1, S2 normal. Lungs: Coarse breath sounds. Abdomen: Positive bowel sounds. Soft, nontender, nondistended. Extremities: 2+ edema in the upper extremities, 1+ in the lower extremities. Neuro: The patient is lethargic. LABS: White blood cell count 6.3, hemoglobin 7.7, hematocrit 29, platelets 221, 000, sodium 138, potassium 4.6, chloride 97, CO2 30, BUN 26, creatinine 0.9, glucose 126, AST 17 , ALT 13, alkaline phosphatase 71, calcium 7.8. ASSESSMENT AND PLAN: 1. Acute on chronic hypercapnic and hypoxemic respiratory failure. The patient continues to have volume overload with pulmonary edema and a right pleural effusion. Continue with diuretic therapy, bronchodilator therapy and supplemental oxygen. 2. Pulmonary edema. Continue with diuretic therapy as directed by the senior mechanical development engineer. 3. Right pleural effusion. Will continue to monitor this closely. 4. Acute diastolic congestive heart failure exacerbation. Management as per the senior mechanical development engineer. 5. Coronary artery disease status post coronary artery bypass graft. Aware. 6. Chronic obstructive pulmonary disease. Continue with bronchodilator therapy and supplemental oxygen. 7. Tobacco dependence. Continue with the NicoDerm patch. 8. Gastrointestinal prophylaxis, will start the patient on Protonix. 9. Deep vein thrombosis prophylaxis, will start the patient on Lovenox. cc: April Lee MD [facility]
[2018-11-14] MEDS: SEROQUEL PO SCH (20:03)
[2018-11-14] MEDS: LOVENOX SUBQ SCH (20:03)
[2018-11-15] MEDS: HUMALOG SUBQ SCH ×6 (01:48→20:40)
[2018-11-15 05:26] LABS: ALLEN TEST YES; BE 12.5 mmoll (-3.0-3.0); BLOOD TYPE ARTERIAL; HCO3-(ACT) 34.7 mmoll (20.0-26.0); METHB 0.4 % (0.0-1.5); O2(CT) 11.5 mL/dL (15.0-23.0); O2HB 95.4 % (95.0-99.0); PO2(98.6) 86 mmHg (60-100); SAMPLE BLOOD; SAO2 98.8 % (95.0-100.0); THB 8.5 g/dL (11.5-17.4)
[2018-11-15 05:27] LABS: MODALITY CANNULA; PCO2(98.6) 63 mmHg (35-45)
[2018-11-15] MEDS: SODIUM CHLORIDE 0.9% INJ SCH (06:20)
[2018-11-15] MEDS: PROTONIX IV SCH (06:20)
[2018-11-15 06:40] LABS: BASO# 0.04 X1000 (0.0-0.2); BASO% 0.5 % (0.0-0.8); EOS# 0.35 X1000 (0.0-0.7); EOS% 4.7 % (0.0-10.0); HEMATOCRIT 31.2 % (42.0-52.0); LYMPH# 0.99 X1000 (1.2-3.4); LYMPH% 13.2 % (20.5-51.1); MCH 17.7 PG (27-31); MCHC 25.6 g/dL (33-37); MONO# 0.76 X1000 (0.11-0.59); MONO% 10.1 % (1.7-9.3); MPV 9.2 FL (7.4-10.4); NEUT# 5.36 X1000 (1.4-6.5); NEUT% 71.5 % (42.2-75.2); PLT 242 X1000 (130-400); RBC 4.52 XMIL (4.7-6.1); RDW 24.5 % (11.5-14.5)
--- NOTE | 2018-11-15 07:35 | Diag Imaging Result Doc PS360 ---
EXAM: CHEST-PORTABLE INDICATION: pulmonary edema TECHNIQUE: One view COMPARISON: 11/14/2018 FINDINGS: Interstitial thickening suggesting edema is unchanged. The right pleural effusion also appears to be stable. No new consolidation is identified. Cardiac silhouette is stable. IMPRESSION: Stable chest. Electronically signed by Rio Schuster 11/15/2018 7:33 AM
[2018-11-15 07:39] LABS: AGAP 9; BUN 27 mg/dL (8-22); CALCIUM 8.5 mg/dL (8.8-10.2); CHLORIDE 96 mmol/L (98-107); COSMO 280; CREATININE 0.9 mg/dL (0.7-1.2); ESTIMATED GFR > 60; GLUCOSE 92 mg/dL (70-104); PHOSPHORUS 4.4 mg/dL (2.7-4.5); POTASSIUM 5.1 mmol/L (3.5-5.1); SODIUM 138 mmol/L (136-145); TCO2 33 mmol/L (25-35)
[2018-11-15] MEDS: PATIENT'S OWN MED PO SCH ×2 (08:36→20:40)
[2018-11-15] MEDS: NICODERM PATCH TD SCH (08:42)
[2018-11-15] MEDS: LASIX IV SCH (08:42)
[2018-11-15] MEDS: PLAVIX PO SCH (08:42)
[2018-11-15] MEDS: ASPIRIN PO SCH (08:42)
[2018-11-15] MEDS: TOPROL XL PO SCH (08:42)
[2018-11-15] MEDS: CELEXA PO SCH (08:42)
[2018-11-15] MEDS: ZOFRAN IV PRN (17:16)
--- NOTE | 2018-11-15 19:02 | PROGRESS NOTE ---
DATE: 11/15/2018 SUBJECTIVE: The patient is lethargic. No acute events noted overnight. OBJECTIVE: Vital Signs: Temperature 98.2, blood pressure 108/70, heart rate 83 , respirations 20, O2 sats 95% on the Venturi mask. Urine output 4.4 L. General: This is a chronically ill- appearing elderly male lying in bed in no acute distress. HEENT: Head normocephalic, atraumatic. Heart: S1, S2 normal. Lungs: Equal air entry bilaterally. No crackles. No rales. Abdomen: Positive bowel sounds. Soft, nontender, nondistended. Extremities: 1+ edema. Neurologic: The patient is sleeping. He barely wakes up to communicate. LABS: White blood cell count 7.5, hemoglobin 8, hematocrit 31, platelets 242, 000. Sodium 138, potassium 5.1, chloride 96, CO2 33, BUN 27, creatinine 0.9, glucose 92, calcium 8.5. ProBNP 2599. Chest x-ray shows pulmonary edema and a right pleural effusion. ASSESSMENT AND PLAN: 1. Acute on chronic hypercapnic and hypoxemic respiratory failure. The patient has pulmonary edema. We will continue to treat this underlying issue. 2. Pulmonary edema. Continue with diuretic therapy as directed by the paper carrier. 3. Metabolic encephalopathy. Unchanged. We will continue to monitor for improvement. 4. Right pleural effusion. Stable. 5. Acute on chronic diastolic CHF exacerbation. Continue with diuretic therapy. 6. COPD. Continue with bronchodilator therapy and supplemental oxygen. 7. Coronary artery disease status post CABG. Aware. 8. Iron deficiency anemia. Will check stool for occult blood. Monitor the H/H. Continue on protonix. cc: April Lee MD [facility]
[2018-11-15] MEDS: SEROQUEL PO SCH (20:39)
[2018-11-15] MEDS: LOVENOX SUBQ SCH (20:40)
[2018-11-16] MEDS: HUMALOG SUBQ SCH ×6 (00:07→21:49)
[2018-11-16 05:15] LABS: BASO# 0.01 X1000 (0.0-0.2); BASO% 0.1 % (0.0-0.8); EOS# 0.06 X1000 (0.0-0.7); EOS% 0.8 % (0.0-10.0); HEMATOCRIT 30.6 % (42.0-52.0); HEMOGLOBIN 7.6 g/dL (14.0-18.0); IMM GRAN# 0.02 X1000 (0.0-0.04); IMM GRAN% 0.3 % (0.0-0.5); LYMPH# 0.78 X1000 (1.2-3.4); LYMPH% 10.2 % (20.5-51.1); MCH 17.8 PG (27-31); MCHC 24.8 g/dL (33-37); MCV 71.8 FL (81-99); MONO# 0.64 X1000 (0.11-0.59); MONO% 8.4 % (1.7-9.3); MPV 8.8 FL (7.4-10.4); NEUT# 6.11 X1000 (1.4-6.5); NEUT% 80.2 % (42.2-75.2); PLT 223 X1000 (130-400); RBC 4.26 XMIL (4.7-6.1); WBC 7.62 X1000 (4.8-10.8)
[2018-11-16 05:21] LABS: ALLEN TEST YES; BE 13.5 mmoll (-3.0-3.0); BLOOD TYPE ARTERIAL; HCO3-(ACT) 35.5 mmoll (20.0-26.0); METHB 0.5 % (0.0-1.5); O2(CT) 10.8 mL/dL (15.0-23.0); O2HB 95.4 % (95.0-99.0); PO2(98.6) 92 mmHg (60-100); SAMPLE BLOOD; SAO2 98.1 % (95.0-100.0); THB 7.9 g/dL (11.5-17.4); pH(98.6) 7.37 (7.35-7.45)
[2018-11-16 05:22] LABS: MODALITY VENTIMASK; PCO2(98.6) 70 mmHg (35-45)
[2018-11-16 05:41] LABS: AGAP 6; BUN 31 mg/dL (8-22); CALCIUM 8.5 mg/dL (8.8-10.2); CHLORIDE 98 mmol/L (98-107); COSMO 292; ESTIMATED GFR > 60; GLUCOSE 170 mg/dL (70-104); POTASSIUM 5.7 mmol/L (3.5-5.1); SODIUM 141 mmol/L (136-145); TCO2 37 mmol/L (25-35)
[2018-11-16] MEDS: PROTONIX IV SCH (06:07)
--- NOTE | 2018-11-16 07:04 | Diag Imaging Result Doc PS360 ---
EXAM: CHEST-PORTABLE 11/16/2018 HISTORY: pulmonary edema TECHNIQUE: AP portable at 0556 COMMENT: There is cardiomegaly. There is increased pulmonary vascularity and interstitial pulmonary edema. There is denser opacification over the right lower lobe and middle lobe obscuring the right heart border and hemidiaphragm. Compared to the previous study of 11/15/2018 this has not changed significantly. There is no appreciable change since 11/14/2018. IMPRESSION: Cardiomegaly, pulmonary edema, and probable right pleural effusion. Atelectasis versus pneumonia in the right lower and middle lobe. Electronically signed by Marcel Solares 11/16/2018 7:02 AM
[2018-11-16] MEDS ORDERED: LASIX IV ONE (08:14)
[2018-11-16] MEDS ORDERED: CALCIUM GLUCONATE 1 GM in NS 50 ML IV ONE (08:18)
[2018-11-16] MEDS ORDERED: D50W SYRINGE IV ONE (08:18)
[2018-11-16] MEDS ORDERED: ALBUTEROL 0.5% INH CONC FOR HYPERKALEMIA INH ONE (08:19)
[2018-11-16 08:27] LABS: ALLEN TEST YES; BE 16.1 mmoll (-3.0-3.0); BLOOD TYPE ARTERIAL; HCO3-(ACT) 37.5 mmoll (20.0-26.0); METHB 0.6 % (0.0-1.5); O2(CT) 10.5 mL/dL (15.0-23.0); O2HB 96.8 % (95.0-99.0); PO2(98.6) 132 mmHg (60-100); SAMPLE BLOOD; SAO2 102.3 % (95.0-100.0); THB 7.5 g/dL (11.5-17.4); pH(98.6) 7.39 (7.35-7.45)
[2018-11-16 08:28] LABS: PCO2(98.6) 71 mmHg (35-45)
[2018-11-16 08:29] LABS: MODALITY BI PAP
--- NOTE | 2018-11-16 08:32 | EKG Report ---
Test Performed on : 11/16/2018 08:23:54 AM Test Reason : hyperkalemia Blood Pressure : / mmHG Vent. Rate : 102 BPM Atrial Rate : 068 BPM P-R Int : 000 ms QRS Dur : 086 ms QT Int : 348 ms P-R-T Axes : 000 -55 110 degrees QTc Int : 453 ms Atrial fibrillation. with rapid ventricular response. Left axis deviation Low voltage QRS Inferior infarct (cited on or before 10-NOV-2018) Possible Anterolateral infarct (cited on or before 10-NOV-2018) Abnormal ECG When compared with ECG of 11-NOV-2018 06:22, Nonspecific T wave abnormality, improved in Anterolateral leads Confirmed by Garcia ORELLANA, Gerardo Singh ([id number]) on 11/16/2018 7:38:42 PM
[2018-11-16] MEDS: NICODERM PATCH TD SCH (08:45)
[2018-11-16] MEDS: PROTONIX 80 MG in NS 80 ML IV SCH ×2 (08:49→17:46)
[2018-11-16] MEDS: PATIENT'S OWN MED PO SCH ×2 (09:09→22:13)
[2018-11-16] MEDS: MAXIPIME 2 GM in NS 100 ML IV SCH ×2 (10:20→22:21)
[2018-11-16] MEDS: ZYVOX 600 MG/D5W 600 MG/300 ML IVPB IV SCH ×2 (10:20→22:21)
[2018-11-16] MEDS: TOPROL XL PO SCH (10:51)
[2018-11-16 12:08] LABS: HEMATOCRIT 30.7 % (42.0-52.0); HEMOGLOBIN 7.6 g/dL (14.0-18.0)
--- NOTE | 2018-11-16 14:50 | INFECTIOUS DISEASE CONSULT REP ---
DATE: 11/16/2018 CONCLUSION: The patient was admitted to the hospital with pulmonary edema and probable right lung pneumonia. RECOMMENDATIONS: I agree with treating the patient with Zyvox and cefepime. Also, I agree with checking the patient's procalcitonin level and immunoglobulin levels. DISCUSSION: The patient is unable to provide a history. No family member is present. The information I got is from the computer. The patient was sent from the [facility] to the emergency room at [facility]. He was admitted with congestive heart failure and also a possible right lung pneumonia. His CBC shows a white count of 7620, hemoglobin 7.6, and platelet count 223,000. Creatinine is 1. GFR is greater than 60. Arterial blood gases show a pH of 7.39, a PO2 of 132, and a pCO2 of 71. Blood cultures are pending. Chest x-ray shows pulmonary edema and possible right lung pneumonia. The patient lives in the [facility]. ALLERGIES: There are no known allergies listed. HOME MEDICATIONS: 1. Acetaminophen Diphenhydramine taken each night. 2. Buspirone. 3. Celexa. 4. Plavix. 5. Ferrous sulfate. 6. Fluticasone. 7. Lasix. 8. Gabapentin. 9. Insulin. 10. Lisinopril. 11. Metoprolol. 12. Nystatin. 13. Pantoprazole. 14. Pravastatin. 15. Seroquel. 16. Senna Plus tablet. 17. Aspirin. 18. Dulcolax. 19. Celexa. 20. Plavix. 21. Fluticasone. 22. Gabapentin. 23. Insulin. 24. Lisinopril. 25. Metoprolol. 26. NicoDerm patch. 27. Pantoprazole. 28. Pravastatin. 29. Seroquel. 30. Senna Plus Tablet. PHYSICAL EXAMINATION: Vital Signs: Temperature maximum was 100.4; now it is 99, pulse 87, respirations 28, blood pressure 100/59. General: This is an ill-appearing, obese, elderly male. He has a depressed level of consciousness. Head/eyes/ears/nose/throat: Patient has a BiPAP mask on. There is no drainage from the nose or ears. Neck: Meningismus. Thorax: No increased AP diameter of the chest. Lungs: Clear to auscultation. Cardiovascular: Heart rate is irregular. Abdomen: Soft and nontender. Extremities: Patient has bilateral leg edema. He has some pinkish discoloration in the lower part of both legs, but no real erythema. Thank you for the consult. cc: Willie Medellin MD
[2018-11-16] MEDS: LASIX IV SCH (17:46)
[2018-11-16 18:08] LABS: HEMOGLOBIN 7.8 g/dL (14.0-18.0)
[2018-11-16] MEDS: XOPENEX NEB INH PRN (19:55)
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
[2018-11-17] MEDS: HUMALOG SUBQ SCH ×6 (00:54→21:25)
[2018-11-17 01:15] LABS: HEMATOCRIT 30.2 % (42.0-52.0); HEMOGLOBIN 7.6 g/dL (14.0-18.0)
--- NOTE | 2018-11-17 02:10 | PROGRESS NOTE ---
DATE: 11/16/2018 SUBJECTIVE: The patient developed progressive respiratory difficulty through the day today and was started on BiPAP and moved to the intensive care unit. Labs demonstrated hypercapnia. He is now breathing more comfortable. He denies chest pain. OBJECTIVE: Vital Signs: Blood pressure 111/75, heart rate 86, with ECG monitor showing atrial fibrillation, oxygen saturation 100% on BiPAP with oxygen saturation of 60%. Neck: Jugular distention cannot be appreciated. Chest: Auscultation of the chest reveals diminished breath sounds at the right base posteriorly. There are a few scattered expiratory rhonchi. Cardiac: Irregular rate and rhythm without appreciable murmur or gallop. There is no evidence of peripheral edema. IMAGING: Chest x-ray indicates right pleural effusion and persistent evidence of pulmonary edema as well as cardiomegaly. Atelectasis versus pneumonia in the right lower lobe and right middle lobe reported. LABORATORY DATA: Includes a white blood cell count 7.62, hematocrit 30.7, hemoglobin 7.6, platelet count 223,000. Sodium 141, potassium 5.7, chloride 98, carbon dioxide 37, BUN 31, creatinine 1.0, glucose 170, troponin T is 0.074. IMPRESSION: 1. Hypoxemic/hypercapnic respiratory failure due to combination of acute diastolic heart failure, chronic obstructive pulmonary disease, and possible pneumonia. 2. Chronic atrial fibrillation, rate controlled. 3. Atherosclerotic coronary disease with previous coronary bypass grafting in the past. 4. Significant chronic obstructive pulmonary disease. 5. Obesity. 6. Hypertensive heart disease. 7. Type 2 diabetes mellitus. RECOMMENDATIONS: 1. Continue diuresis with intravenous Lasix. 2. If heart rate elevates, consider resumption of intravenous diltiazem drip. cc: Mario Alberto Lind MD
--- NOTE | 2018-11-17 03:18 | PROGRESS NOTE ---
DATE: 11/16/2018 SUBJECTIVE: The patient was noted to be in respiratory distress this morning and was immediately placed on BiPAP and transferred to the ICU. Also the patient had an episode of dark tarry stools overnight that came back positive for blood. OBJECTIVE: Vital Signs: Temperature 98.6 degrees, blood pressure 112/76, heart rate 91, respirations 11, O2 saturation is 99% on BiPAP. Urine output 2.6 L. General: This is a chronically ill-appearing elderly male lying in bed in moderate distress. Heent: Head is normocephalic and atraumatic. Heart: S1, S2 normal. Irregularly irregular rhythm. Lungs: Coarse breath sounds bilaterally. Abdomen: Obese, soft, nontender. Extremities: With 2+ edema. Neurologic: The patient is confused and restless. LABORATORY DATA: White blood cell count 7.6, hemoglobin 7.8, hematocrit 31, platelets 223,000. Sodium 141, potassium 5.7, chloride 98, CO2 of 37, BUN 31, creatinine 1, glucose 170, calcium 8.5. ProBNP 5533. ABG: PH of 7.39, pCO2 of 71, PO2 of 132, bicarbonate 37. Chest x-ray: Cardiomegaly, pulmonary edema, and right lung pneumonia. ASSESSMENT AND PLAN: 1. Acute on chronic hypoxemic and hypercapnic respiratory failure. The patient has pulmonary edema and pneumonia. The patient has been started on broad-spectrum antibiotics. Blood and sputum cultures have been ordered. We will continue with diuretic therapy. 2. Acute pulmonary edema. Continue with diuretic therapy. 3. Acute on chronic diastolic congestive heart failure exacerbation. We will continue on the current diuretic regimen. 4. Pneumonia. Continue with antibiotic therapy as directed by Dr. Medellin. 5. Morbid obesity. Aware. 6. Gastrointestinal bleed. The patient has been started on a Protonix drip. We will monitor the hemoglobin and hematocrit closely and transfuse as needed. Gastroenterology has been consulted. 7. Hyperkalemia. We will treat the patient's potassium. 8. Diabetes mellitus type 2. Continue on sliding scale insulin. 9. Deep vein thrombosis prophylaxis. We will continue with sequential compression devices. The Lovenox has been discontinued due to the patient's gastrointestinal bleed. cc: April Lee MD
[2018-11-17 04:41] LABS: ALLEN TEST YES; BE 15.8 mmoll (-3.0-3.0); BLOOD TYPE ARTERIAL; HCO3-(ACT) 37.3 mmoll (20.0-26.0); O2(CT) 11.4 mL/dL (15.0-23.0); O2HB 95.7 % (95.0-99.0); PO2(98.6) 123 mmHg (60-100); SAMPLE BLOOD; SAO2 98.7 % (95.0-100.0); THB 8.3 g/dL (11.5-17.4)
[2018-11-17 04:42] LABS: MODALITY NRB; PCO2(98.6) 69 mmHg (35-45)
[2018-11-17] MEDS: LASIX IV SCH ×3 (04:58→15:59)
[2018-11-17] MEDS: PROTONIX 80 MG in NS 80 ML IV SCH ×2 (05:54→14:29)
[2018-11-17 06:13] LABS: AGAP 7; BUN 33 mg/dL (8-22); CALCIUM 8.4 mg/dL (8.8-10.2); CHLORIDE 95 mmol/L (98-107); COSMO 285; CREATININE 0.9 mg/dL (0.7-1.2); ESTIMATED GFR > 60; GLUCOSE 128 mg/dL (70-104); POTASSIUM 5.3 mmol/L (3.5-5.1); SODIUM 138 mmol/L (136-145); TCO2 36 mmol/L (25-35)
[2018-11-17 06:20] LABS: MAGNESIUM 2.1 mg/dL (1.5-2.7); PHOSPHORUS 3.6 mg/dL (2.7-4.5)
--- NOTE | 2018-11-17 06:26 | CONSULTATION ---
DATE OF CONSULTATION: 11/16/2018 INDICATION FOR CONSULTATION: Bloody stools. HISTORY OF PRESENT ILLNESS: The patient is a 73-year-old white male who was admitted on 11/11/2018 from [facility] after a fall. His clinical course has been complicated by congestive heart failure with acute respiratory failure, hyperkalemia, atrial fibrillation with rapid ventricular response, and today maroon colored bloody bowel movements mixed with black blood according to the nurse at bedside. Unfortunately, the patient is unable to provide a history. He is currently on 100% BiPAP after having experienced oxygen desaturations this afternoon. PAST MEDICAL HISTORY: 1. Atrial fibrillation. 2. Congestive heart failure. 3. Vitamin D deficiency. 4. Congestive heart failure. 5. COPD. 6. Diabetes 2. 7. Cardiomegaly. 8. Prostate cancer. 9. Iron deficiency anemia. 10. Constipation. 11. GERD. 12. Obesity. 13. Hypertensive heart disease. PAST SURGICAL HISTORY: Coronary artery bypass surgery. SOCIAL HISTORY: The patient is a resident at [facility]. He has a history of tobacco use according to the chart. His history of alcohol or recreational drug use is unknown. MEDICATION ALLERGIES: None known medication allergies. HOME MEDICATIONS: 1. Ecadotril (acetaminophen with diphenhydramine). 2. Acidophilus. 3. Dev. 4. Aspirin. 5. Dulcolax. 6. Buprenorphine. 7. Buspirone. 8. Vitamin D. 9. Celexa. 10. Plavix. 11. Iron sulfate. 12. Flonase. 13. Lasix. 14. Gabapentin. 15. Mucinex. 16. Ibuprofen. 17. Levemir. 18. Icar. 19. Lisinopril. 20. Calmoseptine. 21. Metoprolol. 22. Centrum. 23. Nicotine CQ. 24. Nystatin. 25. Protonix. 26. MiraLAX. 27. Potassium. 28. Pravastatin. 29. Seroquel. 30. Senna Plus. REVIEW OF SYSTEMS: Remarkable in that the patient denies abdominal pain but nods his head to his name, but refused to answer other questions. PHYSICAL EXAMINATION: General: On exam, he is in no acute distress but is somnolent on BiPAP. Vital Signs: Blood pressure is 123/79, pulse 82, respirations 17 with a temperature of 97.8 degrees. His T-max is 100.1 degrees. HEENT: Exam is limited by the presence of BiPAP. Pulmonary: Lungs are clear to auscultation with normal respiratory effort. Cardiovascular: Regular rate and rhythm with no gallops or rubs. Abdomen: Soft, nontender and nondistended. Extremities: Remarkable for 1 to 2+ edema. Neurologic: He arouses to his name and answers simple questions with a nod, but otherwise does not participate in communication. OBJECTIVE DATA: Hemoglobin of 7.6 with hematocrit of 30.6. White count is 7.62 with 223,000 platelets at 04:50 this morning. Repeat hemoglobin and hematocrit at 11:50 reveals a hemoglobin of 6 with hematocrit of 30.7. His blood gas reveals pH of 7.39 with pCO2 of 71 and a PO2 of 132. This is on 100% BiPAP. Serum chemistries reveal sodium 141, potassium 5.7, chloride 98, CO2 37, BUN 31, creatinine 1 with a glucose of 170. Calcium is 8.5 with an ammonia of 57. IMPRESSION: 1. History of hematochezia and melena. 2. Acute respiratory failure. 3. Atrial fibrillation with rapid ventricular response. RECOMMENDATIONS: 1. According to the nursing staff, the patient had two bloody bowel movements today. There are descriptions of both melena and maroon colored stools. Given that the patient has been on Plavix, aspirin and ibuprofen as well as aspirin, it is reasonable to pursue an EGD and colonoscopy for further evaluation. 2. His respiratory status precludes endoscopic intervention at this time. I recommend supportive care until such time that he is able to bring his hemoglobin and hematocrit and transfusing as indicated. 3. Continue Protonix drip as you are doing. 4. Additional recommendations to follow based on his clinical course. cc: MD April Thomason MD
--- NOTE | 2018-11-17 06:28 | Diag Imaging Result Doc PS360 ---
EXAM: CHEST-PORTABLE HISTORY: pneumonia/chf TECHNIQUE: Portable chest single view COMPARISON: 11/16/2018 FINDINGS: There continues to be cardiomegaly and pulmonary edema. There is at least small right pleural effusion with basilar atelectasis. There may be underlying infiltrates as well. The overall appearance is similar to the prior study. IMPRESSION: Stable exam. Electronically signed by Jose Helms 11/17/2018 6:26 AM
[2018-11-17] MEDS: MAXIPIME 2 GM in NS 100 ML IV SCH ×2 (08:25→21:25)
[2018-11-17] MEDS: TOPROL XL PO SCH (08:26)
[2018-11-17] MEDS: PATIENT'S OWN MED PO SCH ×2 (08:26→23:11)
[2018-11-17] MEDS: NICODERM PATCH TD SCH (08:26)
[2018-11-17 08:31] LABS: BASO# 0.03 X1000 (0.0-0.2); BASO% 0.4 % (0.0-0.8); EOS# 0.19 X1000 (0.0-0.7); EOS% 2.6 % (0.0-10.0); HEMATOCRIT 30.7 % (42.0-52.0); HEMOGLOBIN 7.7 g/dL (14.0-18.0); IMM GRAN# 0.02 X1000 (0.0-0.04); IMM GRAN% 0.3 % (0.0-0.5); LYMPH# 0.77 X1000 (1.2-3.4); LYMPH% 10.7 % (20.5-51.1); MCH 17.8 PG (27-31); MCHC 25.1 g/dL (33-37); MCV 71.1 FL (81-99); MONO# 0.55 X1000 (0.11-0.59); MONO% 7.6 % (1.7-9.3); MPV 8.7 FL (7.4-10.4); NEUT# 5.67 X1000 (1.4-6.5); NEUT% 78.4 % (42.2-75.2); PLT 247 X1000 (130-400); RBC 4.32 XMIL (4.7-6.1); RDW 24.5 % (11.5-14.5); WBC 7.23 X1000 (4.8-10.8)
[2018-11-17 08:32] LABS: EOS 4 % (1-10); LYMPHS 8 % (21-51); MONO 2 % (1-9); SEGS 86 % (42-75)
[2018-11-17] MEDS: XOPENEX NEB INH PRN ×3 (08:34→15:43)
[2018-11-17] MEDS: ZYVOX 600 MG/D5W 600 MG/300 ML IVPB IV SCH ×2 (09:08→21:28)
[2018-11-17] MEDS ORDERED: LOPRESSOR IV SCH (10:15)
[2018-11-17] MEDS: LOPRESSOR IV SCH ×3 (10:22→23:48)
[2018-11-17] MEDS ORDERED: KAYEXALATE PO ONE (13:35)
--- NOTE | 2018-11-17 17:11 | PROGRESS NOTE ---
DATE: 11/17/2018 SUBJECTIVE: The patient is resting comfortably in bed. He is currently on BiPAP. OBJECTIVE: Vital Signs: Temperature 98.6 degrees, blood pressure 136/80, heart rate 106, respiratory rate 26, O2 saturation 92% on BiPAP. Urine output 2.7 L. General: This is a morbidly obese male lying comfortably in bed in no acute distress. Head: Normocephalic, atraumatic. Heart: S1, S2 normal. Lungs: Diminished breath sounds. No crackles, no wheezing. Abdomen: Positive bowel sounds. Soft, obese, nontender, nondistended. Extremities: 2+ edema in the upper extremities, 1+ in the lower extremities. Neuro: The patient is lethargic but will awaken when his name is called. LABS: White blood cell count 7.2, hemoglobin 7.7, hematocrit 30, platelets 247,000. ABG pH of 7.4, pCO2 69, PO2 123, bicarb 37. Sodium 138, potassium 5.3, chloride 95, CO2 36, BUN 33, creatinine 0.9, glucose 128, calcium 8.4, phosphorus 3.6, magnesium 2.1. Chest x-ray shows a right pleural effusion with basilar atelectasis with underlying infiltrates and pulmonary edema. ASSESSMENT AND PLAN: 1. Acute on chronic hypoxemic and hypercapnic respiratory failure. Continue to cycle the BiPAP. Continue to treat the underlying pneumonia and pulmonary edema. Pulmonary is following. 2. Acute pulmonary edema. The patient is on diuretic therapy. Will continue to monitor closely for improvement. 3. Pneumonia. Continue with antibiotic therapy as directed by Dr. Medellin. 4. Acute on chronic diastolic congestive heart failure exacerbation. Continue with diuretic therapy. 5. Gastrointestinal bleed. Continue on the Protonix drip. GI is following. 6. Hyperkalemia. Mildly improved. Will continue to monitor this closely. 7. Paroxysmal atrial fibrillation. Aware. 8. Diabetes mellitus type 2. Continue on sliding scale insulin. 9. Metabolic encephalopathy. Unchanged. Continue to monitor for improvement. 10. Anemia of acute blood loss. Will continue to monitor the patient's hemoglobin and hematocrit closely and transfuse as necessary. 11. Deep vein thrombosis prophylaxis. Continue with SCDs. cc: April Lee MD
--- NOTE | 2018-11-17 19:09 | PULMONOLOGY PROGRESS NOTE ---
DATE: 11/17/2018 SUBJECTIVE: The patient is awake and alert. He reports "they are starving me." He reports his breathing is marginally improved. OBJECTIVE: The patient has been afebrile for the last 24 hours with a maximum temperature of 99.2 degrees. HEENT: Pupils are equal and reactive. Oropharynx is clear. Neck: Supple. Chest: Reveals decreased breath sounds right greater than left base. Abdomen: Obese and soft. Extremities: Reveal decreasing edema. LABORATORIES: White blood count 7.23, hemoglobin 7.7, platelet count 247,000. Sodium 138, potassium 5.3, chloride 95, bicarbonate 36, BUN 33, creatinine 0.9, glucose 128. Arterial blood gas, pH 7.40, pCO2 of 69, PO2 of 123 on nonrebreather. IMPRESSION: 73-year-old with morbid obesity, chronic obstructive pulmonary disease, cor pulmonale with congestive heart failure, coronary artery disease, pneumonia, pleural effusions, lower GI bleeding by description, and mild hyperkalemia. RECOMMENDATIONS: 1. Continue current antibiotic regimen. 2. Continue diuretics as tolerated. 3. Continue bronchial hygiene. 4. Ice chips as tolerated and advance as recommended by the GI service. 5. Single dose of Kayexalate. 6. Additional recommendations pending hospital course. cc: Hayden Whitten MD
--- NOTE | 2018-11-17 20:26 | PROGRESS NOTE ---
DATE: 11/17/2018 SUBJECTIVE: The patient is feeling better. He reports that his breathing has improved. He is asking for food. However, the nurses note that he occasionally chokes on ice chips. The patient reports that he has had no difficulty with liquids in the past but has occasionally choked on meat and spaghetti. There has been no recurrent GI bleeding overnight. PHYSICAL EXAMINATION: Vital Signs: His blood pressure is 154/81, pulse 101, respiration 19, temperature is 97.9 degrees. Pulmonary: Breath sounds are coarse. Cardiovascular: Reveals regular rate and rhythm with no gallops or rubs. Abdomen: Soft and nontender. It is protuberant. OBJECTIVE DATA: Reveals a hemoglobin of 7.7 with hematocrit of 30.7 and white count of 7.23. He has 247,000 platelets. His pH is 7.40 with a pCO2 of 69 and a PO2 of 123 on 100 percent nonrebreather this morning. His sodium is 138, potassium 5.3, chloride 95, CO2 36, BUN 33, creatinine 0.9 with a glucose of 128. Calcium is 8.4, phosphorus 3.6, magnesium 2.1. RECOMMENDATION: 1. From a GI bleeding perspective, the patient has had no bleeding overnight but remains anemic. He will need EGD and colonoscopy at some point in the future given that he has had both melena and bright red blood per rectum. He notes that he has a history of hemorrhoids. He has had multiple colonoscopies in the past primarily in [place] and [place]. He is amenable to endoscopic evaluation once his respiratory status improves. 2. I will place the patient on a clear liquid diet. He will need aspiration precautions. Because of his history of choking on meat and spaghetti, I will obtain a modified barium swallow on Tuesday for interval assessment. 3. Continue to monitor serial hemoglobin and hematocrit. Please transfuse as indicated. 4. If he shows evidence of aspiration at bedside, I would make him NPO over the weekend. 5. Dr. Enrique Stovall will be covering this weekend. Please feel free to contact him if you have any additional questions. cc: April Lee MD
--- NOTE | 2018-11-17 22:53 | INFECTIOUS DISEASE PROGRESS NO ---
DATE: 11/17/2018 PRESENT ILLNESS: Mr. Herrera has pulmonary edema and possible pneumonia. MEDICATIONS: Today is day 1 of cefepime 2 g IV every 12 and Zyvox 600 mg IV every 12. PHYSICAL EXAM: Vital Signs: Temperature is 98 degrees, pulse rate 94, respiratory rate 22, blood pressure 144/87, O2 saturation is 94% on a 40% FiO2 on the Ventimask. General: This is an obese, chronically ill-appearing elderly gentleman. He is sitting up in bed currently in no acute distress. HEENT: Atraumatic, normocephalic. Oral mucous membranes are pink and moist. Conjunctivae are pale. Neck: Supple. Trachea is midline. Cardiovascular: Irregularly irregular. Atrial fibrillation on the monitor. Pedal and radial pulses are +2 bilaterally. There is a generalized edema noted greater on the right side than the left. Pitting 2 to 3+. Respiratory: Lung sounds are coarse rhonchi noted bilaterally diminished in the bases. Abdomen: Soft, obese and nontender. Bowel sounds are active. Neurologic: He is awake , alert and oriented, able to move all extremities with generalized weakness, right upper extremity has greater limitations due to previous fracture. LABORATORY AND X-RAY: Today his white count is 7.23, hemoglobin 7.7, platelet count 247,000, this morning on 100% nonrebreather his pH is 7.4, pCO2 69, PO2 123, HC03 37.3. Creatinine is 0.9. Estimated GFR is greater than 60. Immunoglobulin levels show an IgA of 103 and IgG of 695. Procalcitonin level is pending. Chest x-ray today shows cardiomegaly and pulmonary edema with the possibility of underlying infiltrates. ASSESSMENT AND PLAN: Mr. Herrera is being treated for possible pneumonia. We are awaiting return of procalcitonin level. At this point he does not have any significant immunoglobulin deficiencies. For now we will continue the Zyvox and cefepime as ordered. These plans have been discussed with and recommended by Dr. Medellin. COMORBIDITIES: Include that he is elderly and obese with diabetes mellitus, atrial fibrillation, congestive heart failure, and he is a smoker with COPD. Dictated by ALEXA Lynn for Willie Medellin MD This chart was documented by, ALEXA Lynn and accurately reflects the services performed, treatment plan and medical decisions as attested by the providers signature Willie Medellin MD. cc: Willie Medellin MD MTDD
[2018-11-18] MEDS: ZOFRAN IV PRN (01:09)
[2018-11-18] MEDS: PROTONIX 80 MG in NS 80 ML IV SCH ×3 (01:45→21:08)
[2018-11-18] MEDS: HUMALOG SUBQ SCH ×6 (01:45→21:10)
[2018-11-18 05:16] LABS: ALLEN TEST YES; BE 15.1 mmoll (-3.0-3.0); BLOOD TYPE ARTERIAL; HCO3-(ACT) 36.7 mmoll (20.0-26.0); METHB 0.3 % (0.0-1.5); O2HB 96.4 % (95.0-99.0); PO2(98.6) 130 mmHg (60-100); SAMPLE BLOOD; SAO2 99.2 % (95.0-100.0); THB 9.4 g/dL (11.5-17.4); pH(98.6) 7.37 (7.35-7.45)
[2018-11-18 05:30] LABS: MODALITY NRB; PCO2(98.6) 74 mmHg (35-45)
[2018-11-18] MEDS: LASIX IV SCH ×2 (05:34→16:53)
[2018-11-18] MEDS: LOPRESSOR IV SCH ×3 (05:34→16:12)
[2018-11-18 06:23] LABS: BASO# 0.06 X1000 (0.0-0.2); BASO% 0.7 % (0.0-0.8); EOS# 0.26 X1000 (0.0-0.7); EOS% 3.2 % (0.0-10.0); HEMATOCRIT 32.9 % (42.0-52.0); HEMOGLOBIN 8.3 g/dL (14.0-18.0); IMM GRAN# 0.03 X1000 (0.0-0.04); IMM GRAN% 0.4 % (0.0-0.5); LYMPH# 0.85 X1000 (1.2-3.4); LYMPH% 10.5 % (20.5-51.1); MCH 17.9 PG (27-31); MCHC 25.2 g/dL (33-37); MCV 71.1 FL (81-99); MONO# 0.79 X1000 (0.11-0.59); MONO% 9.8 % (1.7-9.3); NEUT# 6.09 X1000 (1.4-6.5); NEUT% 75.4 % (42.2-75.2); PLT 289 X1000 (130-400); RBC 4.63 XMIL (4.7-6.1); RDW 24.9 % (11.5-14.5); WBC 8.08 X1000 (4.8-10.8)
[2018-11-18 06:51] LABS: AGAP 9; ALKALINE PHOSPHATASE 78 U/L (32-122); BUN 35 mg/dL (8-22); CALCIUM 8.8 mg/dL (8.8-10.2); CHLORIDE 95 mmol/L (98-107); COSMO 294; CREATININE 0.9 mg/dL (0.7-1.2); ESTIMATED GFR > 60; GLUCOSE 150 mg/dL (70-104); GOT 10 U/L (10-34); GPT 9 U/L (10-44); MAGNESIUM 2.1 mg/dL (1.5-2.7); PHOSPHORUS 3.7 mg/dL (2.7-4.5); POTASSIUM 4.8 mmol/L (3.5-5.1); SODIUM 142 mmol/L (136-145); TCO2 38 mmol/L (25-35); TOTAL BILIRUBIN 0.39 mg/dL (0.20-1.00); TOTAL PROTEIN 6.1 g/dL (6.3-8.3)
[2018-11-18 07:41] LABS: LYMPHS 14 % (21-51); MONO 18 % (1-9); SEGS 68 % (42-75)
[2018-11-18] MEDS: XOPENEX NEB INH PRN ×4 (07:50→19:27)
--- NOTE | 2018-11-18 08:59 | Diag Imaging Result Doc PS360 ---
CHEST-PORTABLE - 11/18/2018 INDICATION: pneumonia/chf COMPARISON: 11/17/2018 FINDINGS: Stable sternotomy wires. Stable severe cardiomegaly and pulmonary vascular congestion. Stable hazy central pulmonary edema. Stable small pleural effusions. IMPRESSION: No change from prior. Electronically signed by Ishaan Young 11/18/2018 8:57 AM
[2018-11-18] MEDS: TOPROL XL PO SCH (09:11)
[2018-11-18] MEDS: MAXIPIME 2 GM in NS 100 ML IV SCH ×2 (09:11→21:08)
[2018-11-18] MEDS: NICODERM PATCH TD SCH (09:11)
[2018-11-18] MEDS: PATIENT'S OWN MED PO SCH ×2 (09:12→21:10)
[2018-11-18] MEDS: ZYVOX 600 MG/D5W 600 MG/300 ML IVPB IV SCH ×2 (09:12→23:44)
--- NOTE | 2018-11-18 12:37 | PROGRESS NOTE ---
DATE: 11/18/2018 SUBJECTIVE: The patient has a BiPAP in place so he is not able to give me much information. He currently denies abdominal pain. I have spoken with the nurse, and she states there was some old blood noted yesterday. His hemoglobin and hematocrit have actually improved today. Hemoglobin 8.3, hematocrit 32.9. Vital signs temperature 98.6, pulse 82, respirations 17, blood pressure 126/80. Generally, the patient aroused easily. He is on BiPAP in no acute distress. LABORATORY: Hematology: WBC 8.08, hemoglobin 8.3, hematocrit 32.9. Chemistry: Sodium 142, potassium 4.8, chloride 95, CO2 of 38. BUN 35, creatinine 0.9, glucose 150. ASSESSMENT AND PLAN: 1. Gastrointestinal bleeding seems to have improved. His hemoglobin and hematocrit are stable. We will continue to follow. 2. History of choking. Recommend aspiration precautions. I believe a modified barium swallow has been ordered for Tuesday. 3. [id number] hypoxia. The patient is on BiPAP at present time. 4. Pneumonia; on antibiotics. Following with Dr. Medellin. 5. Congestive heart failure; on diuretics. PLAN: We will continue to be available over the weekend and Dr. Muse will follow back here on Tuesday. Further plans will be made according to patient's progress. This case will be discussed with Dr. Stovall. Dictated by ALEXA Ayala for Enrique Stovall MD cc: ALEXA King MD
--- NOTE | 2018-11-18 14:07 | PROGRESS NOTE ---
DATE: 11/18/2018 SUBJECTIVE: The patient is resting comfortably in bed. He is lethargic this morning as pCO2 is elevated. OBJECTIVE: Vital Signs: Temperature 98.7 degrees, blood pressure 122/78, heart rate 88, respirations 14, O2 saturation 95% on 60% BiPAP. General: This is a morbidly obese male lying in bed on BiPAP. Head: Normocephalic, atraumatic. Heart: S1, S2 normal. Regular rate and rhythm. Lungs: Coarse breath sounds. No wheezing. No rales. Abdomen: Positive bowel sounds. Soft, nontender, nondistended. Extremities: No edema, no cyanosis. Neuro: The patient is lethargic but will awaken when his name is called. LABS: White blood cell count 8, hemoglobin 8.3, hematocrit 32, platelets 289,000, sodium 142, potassium 4.8, chloride 95, CO2 38, BUN 35, creatinine 0.9, glucose 150, AST 10, ALT 9. Chest x-ray shows severe cardiomegaly and pulmonary vascular congestion. ASSESSMENT AND PLAN: 1. Acute on chronic hypoxemic and hypercapnic respiratory failure. Continue with the current treatment plan. 2. Acute pulmonary edema. Continue with diuretic therapy. 3. Pneumonia. Continue with IV antibiotic therapy and bronchodilator therapy. 4. Acute on chronic diastolic congestive heart failure exacerbation. Continue with diuretic therapy. 5. Cor pulmonale. Aware. 6. Gastrointestinal bleed. The patient's hemoglobin and hematocrit are improved. Continue on the Protonix drip. 7. Paroxysmal atrial fibrillation. Aware. 8. Diabetes mellitus type 2. Continue with sliding scale insulin. 9. Anemia. Improved, will continue to monitor closely. 10. Deep vein thrombosis prophylaxis. Continue with SCDs. cc: April Lee MD
--- NOTE | 2018-11-18 16:56 | PULMONOLOGY PROGRESS NOTE ---
DATE: 11/18/2018 SUBJECTIVE: The patient became more confused this morning. He has had some improvement following after he used his BiPAP. He is now awake, alert and conversant. He has had some bowel movements with blood admixed with the stool per documentation, but the nurse has not seen any blood on her shift so far. OBJECTIVE: General: The patient has been afebrile for the last 24 hours. Vital signs: Blood pressure 109/85, heart rate 86, respiratory rate 16, oxygen saturation 99%. HEENT: Pupils are equal and reactive. Oropharynx is clear. Neck: Supple. Chest: Reveals shallow breath sounds bilaterally. Cardiac exam: S1, S2. Abdomen: Obese and soft. Extremities: Reveal 1+ peripheral edema. LABORATORIES: White blood count 8.08, hemoglobin 8.3, platelet count 289,000. Sodium 142, potassium 4.8, chloride 95, bicarbonate 38. BUN 35, creatinine 0.9. Arterial blood gas reveals a pH 7.37, pCO2 of 74, PO2 of 130. IMAGING: Chest x-ray reveals cardiomegaly, pulmonary vascular congestion, pleural effusions right greater than left base. IMPRESSION: A 73-year-old male with morbid obesity, chronic obstructive pulmonary disease, cor pulmonale, congestive heart failure, coronary artery disease, pneumonia, pleural effusions, mild hyperkalemia which has resolved following Kayexalate, and lower gastrointestinal bleeding which appears to be minor/intermittent. RECOMMENDATIONS: 1. Roper BiPAP at bedtime and p.r.n. 2. Continue diuretics as tolerated. 3. Continue bronchial hygiene. 4. Diet as per Gastroenterology Service. The patient remains a difficult candidate for an EGD or colonoscopy. 5. Recommend continue ICU monitoring until he has had some clinical improvement. cc: Hayden Whitten MD
[2018-11-19] MEDS: HUMALOG SUBQ SCH ×6 (01:44→20:30)
[2018-11-19 04:53] LABS: BE 18.4 mmoll (-3.0-3.0); BLOOD TYPE ARTERIAL; HCO3-(ACT) 39.2 mmoll (20.0-26.0); O2(CT) 10.7 mL/dL (15.0-23.0); O2HB 92.4 % (95.0-99.0); PO2(98.6) 65 mmHg (60-100); SAMPLE BLOOD; SAO2 95.7 % (95.0-100.0); THB 8.2 g/dL (11.5-17.4); pH(98.6) 7.44 (7.35-7.45)
[2018-11-19 04:55] LABS: ALLEN TEST YES; MODALITY BI PAP; PCO2(98.6) 66 mmHg (35-45)
[2018-11-19] MEDS: PROTONIX 80 MG in NS 80 ML IV SCH (06:18)
[2018-11-19] MEDS: LASIX IV SCH ×2 (06:18→16:11)
[2018-11-19 06:30] LABS: BASO# 0.05 X1000 (0.0-0.2); BASO% 0.5 % (0.0-0.8); EOS# 0.24 X1000 (0.0-0.7); EOS% 2.6 % (0.0-10.0); HEMATOCRIT 29.9 % (42.0-52.0); HEMOGLOBIN 7.6 g/dL (14.0-18.0); IMM GRAN# 0.02 X1000 (0.0-0.04); IMM GRAN% 0.2 % (0.0-0.5); LYMPH# 0.76 X1000 (1.2-3.4); LYMPH% 8.3 % (20.5-51.1); MCHC 25.4 g/dL (33-37); MCV 70.9 FL (81-99); MONO# 0.89 X1000 (0.11-0.59); MONO% 9.7 % (1.7-9.3); MPV 9.3 FL (7.4-10.4); NEUT# 7.17 X1000 (1.4-6.5); NEUT% 78.7 % (42.2-75.2); PLT 282 X1000 (130-400); RBC 4.22 XMIL (4.7-6.1); RDW 24.8 % (11.5-14.5); WBC 9.13 X1000 (4.8-10.8)
[2018-11-19 06:48] LABS: AGAP 10; ALB/GLOB RATIO 0.9; ALBUMIN 2.7 g/dL (3.5-5.0); ALKALINE PHOSPHATASE 71 U/L (32-122); BUN 29 mg/dL (8-22); CALCIUM 8.5 mg/dL (8.8-10.2); CHLORIDE 93 mmol/L (98-107); COSMO 291; CREATININE 0.8 mg/dL (0.7-1.2); ESTIMATED GFR > 60; GLUCOSE 135 mg/dL (70-104); GOT 9 U/L (10-34); GPT 8 U/L (10-44); MAGNESIUM 1.9 mg/dL (1.5-2.7); PHOSPHORUS 2.7 mg/dL (2.7-4.5); POTASSIUM 3.9 mmol/L (3.5-5.1); SODIUM 142 mmol/L (136-145); TCO2 39 mmol/L (25-35); TOTAL BILIRUBIN 0.45 mg/dL (0.20-1.00); TOTAL PROTEIN 5.6 g/dL (6.3-8.3)
[2018-11-19 07:11] LABS: ANISOCYTOSIS 1+; EOS 2 % (1-10); LYMPHS 9 % (21-51); MONO 10 % (1-9); SEGS 79 % (42-75)
--- NOTE | 2018-11-19 07:37 | Diag Imaging Result Doc PS360 ---
CHEST-PORTABLE - 11/19/2018 INDICATION: dyspnea COMPARISON: 11/18/2018 FINDINGS: Stable severe cardiomegaly and pulmonary vascular congestion. Stable central infiltrates compatible with pulmonary edema. Stable bilateral pleural effusions. IMPRESSION: No change from prior. Electronically signed by Ishaan Young 11/19/2018 7:34 AM
[2018-11-19] MEDS: XOPENEX NEB INH PRN ×3 (07:45→16:17)
[2018-11-19] MEDS: PROTONIX IV SCH ×2 (08:50→20:29)
[2018-11-19] MEDS: MAXIPIME 2 GM in NS 100 ML IV SCH ×2 (08:51→20:29)
[2018-11-19] MEDS: TOPROL XL PO SCH (08:51)
[2018-11-19] MEDS: NICODERM PATCH TD SCH (08:51)
[2018-11-19] MEDS: PATIENT'S OWN MED PO SCH ×2 (08:51→21:28)
[2018-11-19] MEDS: ZYVOX 600 MG/D5W 600 MG/300 ML IVPB IV SCH ×2 (09:00→23:06)
--- NOTE | 2018-11-19 13:58 | PULMONOLOGY PROGRESS NOTE ---
DATE: 11/19/2018 SUBJECTIVE: Patient is awake, alert, and conversant. He is without specific complaints this morning. OBJECTIVE: Vital signs: Blood pressure 140/70, heart rate 96, respiratory rate 18, oxygen saturation 97%. He has been afebrile for the last 24 hours. He has had approximately 2 pound weight decrease over the last 24 hours. HEENT: Pupils are equal and reactive. Oropharynx is clear. Neck: Supple. Chest: Reveals diminished breath sounds both lung bases with prolonged expiratory phase. Cardiac: S1, S2. Abdomen: Obese, soft. Extremities: Reveal chronic edema. LABORATORIES: Chest x-ray reveals no change. The patient has cardiomegaly with pulmonary edema, small bilateral effusions, and pulmonary vascular congestion. White blood count 9.13, hemoglobin 7.6, platelet count 282,000. Sodium 142, potassium 3.9, chloride 93, bicarbonate 39, BUN 29, creatinine 0.8. Arterial blood gas, pH 7.44, pCO2 of 66, PO2 of 65. IMPRESSION: This is a 73-year-old with morbid obesity, chronic obstructive pulmonary disease, cor pulmonale, congestive heart failure, coronary artery disease, bilateral pleural effusions. Patient continues to slowly improve. RECOMMENDATIONS: 1. Continue BiPAP at bedtime and p.r.n. 2. Continue diuretics as tolerated. 3. Continue bronchial hygiene. 4. Consider transfer to the floor this evening or in the morning if he continues to remain stable to improving. cc: Hayden Whitten MD
--- NOTE | 2018-11-19 16:40 | PROGRESS NOTE ---
DATE: 11/19/2018 SUBJECTIVE: The patient is resting comfortably in bed. He has no complaints. He ate all of his breakfast. OBJECTIVE: Vital Signs: Temperature 98.1, blood pressure 121/59, heart rate 87, respirations 20, O2 sats 99% on the Ventimask. General: This is a chronically ill-appearing elderly male lying in bed in no acute distress. Heart: S1, S2 normal. Tachycardic. Lungs: Equal air entry bilaterally. No wheezing, no rales. Abdomen: Positive bowel sounds. Soft, nontender, nondistended. Extremities: No edema. No cyanosis. Neurologic: The patient is alert and oriented x 3. LABS: White blood cell count 9.1, hemoglobin 7.6, hematocrit 29, platelets 282,000. Sodium 142, potassium 3.9, chloride 93, CO2 39, BUN 28, creatinine 0.8, glucose 135. ASSESSMENT AND PLAN: 1. Acute on chronic hypoxemic and hypercapnic respiratory failure. Continue on the current treatment plan. 2. Acute pulmonary edema. Continue with diuretic therapy. 3. Pneumonia. Continue with IV antibiotic therapy and bronchodilator therapy. 4. Acute on chronic diastolic CHF exacerbation. The patient is on diuretic therapy. 5. Cor pulmonale. Aware. 6. GI bleed. We will continue to monitor the hemoglobin and hematocrit closely. The patient is on Protonix. 7. Paroxysmal atrial fibrillation. Aware. 8. Anemia. The patient's hemoglobin and hematocrit is a little lower today. We will continue to monitor. We will transfuse if the hemoglobin is less than 7. 9. Diabetes mellitus type 2. Continue on sliding scale insulin. 10. DVT prophylaxis. Continue on SCDs. cc: April Lee MD
[2018-11-19] MEDS: SODIUM CHLORIDE 0.9% INJ SCH (20:29)
[2018-11-20] MEDS: HUMALOG SUBQ SCH ×6 (01:14→21:37)
[2018-11-20] MEDS: XOPENEX NEB INH PRN ×4 (02:54→15:00)
[2018-11-20] MEDS: LASIX IV SCH ×2 (04:42→17:31)
[2018-11-20 05:50] LABS: BASO# 0.04 X1000 (0.0-0.2); BASO% 0.5 % (0.0-0.8); EOS# 0.42 X1000 (0.0-0.7); EOS% 5.4 % (0.0-10.0); HEMOGLOBIN 7.9 g/dL (14.0-18.0); IMM GRAN# 0.02 X1000 (0.0-0.04); IMM GRAN% 0.3 % (0.0-0.5); LYMPH# 0.88 X1000 (1.2-3.4); LYMPH% 11.3 % (20.5-51.1); MCH 17.8 PG (27-31); MCHC 25.5 g/dL (33-37); MONO# 0.75 X1000 (0.11-0.59); MONO% 9.6 % (1.7-9.3); NEUT# 5.71 X1000 (1.4-6.5); NEUT% 72.9 % (42.2-75.2); PLT 297 X1000 (130-400); RBC 4.43 XMIL (4.7-6.1); RDW 24.7 % (11.5-14.5); WBC 7.82 X1000 (4.8-10.8)
[2018-11-20 06:40] LABS: AGAP 8; BUN 25 mg/dL (8-22); CALCIUM 8.5 mg/dL (8.8-10.2); CHLORIDE 93 mmol/L (98-107); COSMO 285; CREATININE 0.8 mg/dL (0.7-1.2); ESTIMATED GFR > 60; GLUCOSE 146 mg/dL (70-104); POTASSIUM 3.9 mmol/L (3.5-5.1); SODIUM 139 mmol/L (136-145); TCO2 38 mmol/L (25-35)
--- NOTE | 2018-11-20 06:50 | Diag Imaging Result Doc PS360 ---
EXAM: CHEST-PORTABLE HISTORY: dyspnea TECHNIQUE: Portable chest single view COMPARISON: 11/19/2018 FINDINGS: The heart is enlarged and there is pulmonary edema. There are at least small bilateral pleural effusions and there is atelectasis in the lower right lung. IMPRESSION: No interval improvement. Electronically signed by Jose Helms 11/20/2018 6:47 AM
[2018-11-20] MEDS: TOPROL XL PO SCH (09:14)
[2018-11-20] MEDS: MAXIPIME 2 GM in NS 100 ML IV SCH (09:14)
[2018-11-20] MEDS: NICODERM PATCH TD SCH ×2 (09:14→09:22)
[2018-11-20] MEDS: ZYVOX 600 MG/D5W 600 MG/300 ML IVPB IV SCH (09:14)
[2018-11-20] MEDS: PATIENT'S OWN MED PO SCH ×2 (09:15→21:37)
--- NOTE | 2018-11-20 10:07 | INFECTIOUS DISEASE PROGRESS NO ---
DATE: 11/20/2018 PRESENT ILLNESS: The patient has pulmonary edema, but not pneumonia. MEDICATIONS: The patient has been receiving cefepime and Zyvox. PHYSICAL EXAMINATION: Vital Signs: Temperature is 98.2 degrees, pulse 100, respirations 20, blood pressure 148/82. The patient weighs 295 pounds. General: This is an obese, chronically ill-appearing, elderly male. He is in no acute distress. Head, eyes, ears, nose, and throat: He can hear my spoken words and see near objects. He does not have any white coating on his tongue. Neck: No stiffness. Lungs: Clear to auscultation. Cardiovascular: Heart rate is irregular. Abdomen: Soft and nontender. Extremities: Both legs are edematous. They have some slight brownish discoloration, but no erythema. Neurologic: Patient is awake. He can move his extremities. There is no tremor. LABORATORY AND X-RAY: Chest x-ray shows findings compatible with pulmonary edema and right lower lobe atelectasis. Blood cultures are negative. Sputum grew normal jennifer. IgG is 695, IgA is normal. Procalcitonin is 0.17. Creatinine is 0.8. GFR is greater than 60. CBC shows a white count of 7820, hemoglobin 7.9, and platelet count 297,000. ASSESSMENT AND PLAN: 1. The patient has pulmonary edema, but he does not have pneumonia based on the clinical appearance, the x-ray appearance and the procalcitonin of 0.17, which makes pneumonia unlikely. The patient's IgG is minimally decreased at 695. This has no clinical significance, and the patient does not need immunoglobulin replacement therapy. I have discontinued the patient's antibiotics that he has been receiving, namely cefepime and Zyvox. I am signing off the patient's case. I am available to see the patient on a p.r.n. basis. 2. Comorbidities include he is elderly and obese. He also has diabetes mellitus and congestive heart failure. The patient smokes cigarettes and has COPD also. cc: Willie Medellin MD
[2018-11-20] MEDS: PROTONIX IV SCH ×2 (13:26→21:37)
--- NOTE | 2018-11-20 13:45 | PROGRESS NOTE ---
DATE: 11/20/2018 SUBJECTIVE: The patient continues without dyspnea or chest discomfort, on supplemental oxygen per nasal cannula. OBJECTIVE: Vital Signs: Blood pressure 131/80, heart rate 99. Oxygen saturation variable, presently 97% on nasal cannula oxygen. ECG monitor shows atrial fibrillation. Neck: Jugular venous distention cannot be appreciated. Chest: Clear to auscultation anteriorly. Cardiac Exam: Reveals an irregular rate and rhythm without appreciable murmur or gallop. Extremities: Without edema. LABORATORY DATA: Includes a white blood cell count 7.82, hematocrit 31.0, hemoglobin 7.9, platelet count 297,000. Sodium 139, potassium 3.9, chloride 93, carbon dioxide 38, BUN 25, creatinine 0.8, glucose 146. DIAGNOSTIC STUDIES: Chest x-ray continues to show pulmonary vascular congestion and right pleural effusion as well as cardiomegaly. IMPRESSION: 1. Hypoxemic/hypercapnic respiratory failure due to a combination of congestive heart failure and chronic obstructive pulmonary disease. 2. Chronic atrial fibrillation, rate controlled. 3. Atherosclerotic coronary disease with previous coronary bypass surgery. 4. Significant chronic obstructive pulmonary disease. 5. Obesity. 6. Hypertensive heart disease. 7. Type 2 diabetes mellitus. RECOMMENDATIONS: 1. Continue diuresis. 2. May need to slow diuresis after another 24 hours. 3. Conservative cardiovascular management overall. cc: Mario Alberto Lind MD
--- NOTE | 2018-11-20 13:56 | Diag Imaging Result Doc PS360 ---
EXAM: BA SWALLOW W/VIDEO SPEECH THER INDICATION: dysphagia, possible aspiration TECHNIQUE: COMPARISON: None. FINDINGS: Upon swallowing thin liquid barium, there was an extrinsic filling defect at the posterior aspect of the upper esophagus consistent with cricopharyngeus spasm/hypertrophy. This is did not persist with pudding consistency barium. Limited views of the lower esophagus reveal tertiary contractions suggesting dysmotility. 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 Please see speech pathology report for full details. Electronically signed by Rio Schuster 11/20/2018 1:54 PM
--- NOTE | 2018-11-20 17:57 | PROGRESS NOTE ---
DATE: 11/20/2018 SUBJECTIVE: The patient is resting comfortably in bed. He used his BiPAP wound machine last night. OBJECTIVE: Vital Signs: Temperature 98.8 degrees, blood pressure 135/80, heart rate 97, respirations 26, O2 saturations 96% on 4 L nasal cannula. Urine output 2.5 L. General: This is a chronically ill-appearing, morbidly obese male lying in bed, in no acute distress. Heart: S1 and S2 normal. Tachycardic. Lungs: Equal air entry bilaterally. No wheezing. No rales. Abdomen: Positive bowel sounds. Soft, nontender, nondistended. Extremities: 1+ edema. No cyanosis. No calf tenderness. Neurologic: The patient is alert and oriented x4. LABORATORY DATA: White blood cell count 7.8, hemoglobin 7.9, hematocrit 31, platelets 297,000. Sodium 139, potassium 3.9, chloride 93, CO2 38, BUN 25, creatinine 0.8, glucose 146. ASSESSMENT AND PLAN: 1. Acute on chronic hypoxemic and hypercapnic respiratory failure. Continue on the current treatment plan. 2. Acute pulmonary edema. Continue with diuretic therapy. 3. Acute on chronic diastolic congestive heart failure. Continue with diuretic therapy. 4. Cor pulmonale. Aware. 5. Gastrointestinal bleed. The patient has had no further bloody stools. Gastroenterology is following. 6. Paroxysmal atrial fibrillation. Aware. 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 7. Anemia. Low, but stable. Will transfuse if the hemoglobin is less than 7. 8. Diabetes mellitus type 2. Continue on sliding scale insulin. 9. Deep vein thrombosis prophylaxis. Continue with sequential compression devices. cc: April Lee MD
--- NOTE | 2018-11-20 20:17 | PROGRESS NOTE ---
DATE: 11/20/2018 SUBJECTIVE: Last week and over the weekend, the patient was noted to have choking when he eats certain foods. 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 The patient states that he feels fine. He does not want anything done. He notes that he has GI bleeding, but he refuses EGD and colonoscopy. He states that he just wants to be left alone. PHYSICAL EXAMINATION: His blood pressure is 131/71, pulse 94, respirations 24, temperature of 98.4 degrees. The remainder of his exam was deferred. OBJECTIVE DATA: Reveals a hemoglobin of 7.9 with hematocrit of 31.0 and a white count 7.82. He has 297,000 platelets. Sodium is 139, potassium 3.9, chloride 93, CO2 38, BUN 25, creatinine 0.6 with a glucose of 146 and a calcium of 8.5. RECOMMENDATION: 1. The patient refuses all endoscopic evaluation. 2. I would continue his Protonix while he is an inpatient and then transition to oral omeprazole as an outpatient. 3. Given the patient's refusal for further evaluation, I will sign off at this time. Thank you for allowing us to participate in care of this patient. cc: Cinda Muse MD
[2018-11-20] MEDS: SODIUM CHLORIDE 0.9% INJ SCH (21:37)
[2018-11-21] MEDS: HUMALOG SUBQ SCH ×6 (01:18→21:22)
[2018-11-21 05:03] LABS: ALLEN TEST YES; BE 18.1 mmoll (-3.0-3.0); BLOOD TYPE ARTERIAL; METHB 1.3 % (0.0-1.5); MODALITY CANNULA; O2(CT) 10.8 mL/dL (15.0-23.0); O2HB 93.4 % (95.0-99.0); PO2(98.6) 79 mmHg (60-100); SAMPLE BLOOD; SAO2 96.9 % (95.0-100.0); THB 8.1 g/dL (11.5-17.4); pH(98.6) 7.41 (7.35-7.45)
[2018-11-21 05:07] LABS: PCO2(98.6) 71 mmHg (35-45)
[2018-11-21] MEDS: LASIX IV SCH ×2 (05:49→16:43)
--- NOTE | 2018-11-21 07:17 | Diag Imaging Result Doc PS360 ---
EXAM: CHEST-1 VIEW 11/21/2018 HISTORY: SOB TECHNIQUE: AP portable at 0558 COMMENT: There is cardiomegaly. There is a right pleural effusion. There is interstitial opacity consistent with pulmonary edema. This has improved slightly with respect to the left upper lobe since the previous study of 11/20/2018. IMPRESSION: Pulmonary edema and right pleural effusion. Electronically signed by Marcel Solares 11/21/2018 7:15 AM
[2018-11-21 07:22] LABS: BASO# 0.03 X1000 (0.0-0.2); BASO% 0.3 % (0.0-0.8); EOS# 0.41 X1000 (0.0-0.7); EOS% 4.2 % (0.0-10.0); HEMATOCRIT 30.9 % (42.0-52.0); HEMOGLOBIN 7.9 g/dL (14.0-18.0); LYMPH# 0.73 X1000 (1.2-3.4); LYMPH% 7.5 % (20.5-51.1); MCH 18.1 PG (27-31); MCHC 25.6 g/dL (33-37); MCV 70.9 FL (81-99); MONO# 1.02 X1000 (0.11-0.59); MONO% 10.5 % (1.7-9.3); MPV 8.9 FL (7.4-10.4); NEUT# 7.49 X1000 (1.4-6.5); NEUT% 77.5 % (42.2-75.2); PLT 295 X1000 (130-400); RBC 4.36 XMIL (4.7-6.1); RDW 24.5 % (11.5-14.5); WBC 9.68 X1000 (4.8-10.8)
[2018-11-21 07:38] LABS: AGAP 7; BUN 18 mg/dL (8-22); CALCIUM 7.9 mg/dL (8.8-10.2); CHLORIDE 92 mmol/L (98-107); COSMO 279; CREATININE 0.7 mg/dL (0.7-1.2); ESTIMATED GFR > 60; GLUCOSE 131 mg/dL (70-104); MAGNESIUM 1.9 mg/dL (1.5-2.7); PHOSPHORUS 3.1 mg/dL (2.7-4.5); POTASSIUM 3.5 mmol/L (3.5-5.1); SODIUM 138 mmol/L (136-145); TCO2 39 mmol/L (25-35)
[2018-11-21 07:45] LABS: LYMPHS 6 % (21-51); SEGS 94 % (42-75)
[2018-11-21] MEDS: PROTONIX IV SCH ×2 (08:55→21:22)
[2018-11-21] MEDS: PATIENT'S OWN MED PO SCH ×2 (08:55→21:31)
[2018-11-21] MEDS: NICODERM PATCH TD SCH (08:55)
[2018-11-21] MEDS: SODIUM CHLORIDE 0.9% INJ SCH (08:55)
[2018-11-21] MEDS: TOPROL XL PO SCH (08:59)
--- NOTE | 2018-11-21 13:39 | PROGRESS NOTE ---
DATE: 11/21/2018 SUBJECTIVE: He has no primary care provider. [facility]. 73-year-old male presented on 11/11/2018. He came to the emergency room from [facility] after a fall. He was lethargic and disoriented x3. He is having some abdominal pain and nausea, mostly nonconversant when he is in the emergency room. Admitted with congestive heart failure exacerbation. He did not have an echocardiogram on file and no records at the hospital. Respiratory acidosis, hypercapnic. He was disoriented x3. Metabolic encephalopathy. Hyperkalemia. Atrial fibrillation with rapid ventricular rate. Diabetes mellitus. OBJECTIVE: Today, he is awake and alert. He is very weak and asked if I could help him find his remote control and also his suction device to suction his nose. Temperature 97.9, pulse 89, respiration 16, blood pressure 113/75. Pupils are equal and round. Lungs are clear in all lung wise, anterior and lateral. Cardiovascular: Regular rate without murmur or S3. Abdomen is nontender but it is fairly firm universally. Urine output is 1500 mL. Blood sugars have been 163, 151, 118, 144. ASSESSMENT AND PLAN: 1. Hypoxemic, hypercapnic respiratory failure due to a combination of acute diastolic heart failure and chronic obstructive pulmonary disease. Possible pneumonia. Chronic obstructive pulmonary disease exacerbation. 2. Chronic atrial fibrillation, rate controlled. 3. Atherosclerotic coronary disease. Previous coronary artery bypass grafting. No sign of active ischemia. 4. Significant chronic obstructive pulmonary disease. 5. Obesity. 6. Hypertensive heart disease. 7. Diabetes mellitus, type 2. He is very weak. Physical therapy is involved. REVIEW OF HIS ORDERS: 1. He is on Lasix 40 mg IV q.12. 2. He is on insulin lispro, subcu protocol, sliding scale. 3. Getting Xopenex breathing treatments. 4. Metoprolol 25 mg a day. 5. Nicotine patch 20 mg a day. 6. Protonix 40 mg IV q. 12 hours. Continue physical therapy. I think we will see if we can get him back to rehab. cc: Benitez Zhu MD
--- NOTE | 2018-11-21 14:41 | PROGRESS NOTE ---
DATE: 11/21/2018 SUBJECTIVE: Patient relates feeling better today. He denies shortness of breath on supplemental oxygen per nasal cannula. He recalls having problems with GI bleeding while on warfarin five years ago and has been on anti-platelet therapy since that time. He could not afford Eliquis when this was tried. He expressed his preference to stay on aspirin when this was discussed further. OBJECTIVE: Vital Signs: Blood pressure 115/71, heart rate 92 and irregular with ECG monitor showing atrial fibrillation. There is no significant jugular venous distention. Chest: Auscultation of chest reveals diminished breath sounds in the right base in the right base. Cardiac Exam: Reveals an irregular rate and rhythm without appreciable murmur or gallop. Extremities: Without edema. LABORATORY DATA: This includes a white blood cell count 9.68, hematocrit 30.9, hemoglobin 7.9, platelet count 295. Sodium 138, potassium 3.5 chloride 92, carbon dioxide 39. BUN 18, creatinine 0.7, glucose 131. IMPRESSION: 1. Hypoxemic/hypercapnic respiratory failure, improving with treatment of congestive heart failure and chronic obstructive pulmonary disease. 2. Chronic atrial fibrillation, rate controlled. Patient has history of previous lower gastrointestinal blood loss. Wall warfarin and prefers to take aspirin. 3. Atherosclerotic coronary disease with previous coronary bypass surgery. 4. Hypertensive heart disease with left ventricular diastolic dysfunction. 5. Significant chronic obstructive pulmonary disease. 6. Obesity. 7. Type 2 diabetes. RECOMMENDATIONS: 1. Continue diuresis number contused. 2. Continue aspirin p.o. daily. 3. Conservative cardiovascular management overall. cc: Mario Alberto Lind MD
[2018-11-22] MEDS: HUMALOG SUBQ SCH ×6 (01:13→21:20)
[2018-11-22] MEDS: LASIX IV SCH ×2 (05:19→17:16)
[2018-11-22 05:55] LABS: ALLEN TEST YES; BE 14.6 mmoll (-3.0-3.0); BLOOD TYPE ARTERIAL; HCO3-(ACT) 36.2 mmoll (20.0-26.0); METHB 0.8 % (0.0-1.5); O2(CT) 12.1 mL/dL (15.0-23.0); O2HB 91.9 % (95.0-99.0); PO2(98.6) 63 mmHg (60-100); SAMPLE BLOOD; SAO2 95.2 % (95.0-100.0); THB 9.3 g/dL (11.5-17.4); pH(98.6) 7.37 (7.35-7.45)
[2018-11-22 05:56] LABS: MODALITY CANNULA; PCO2(98.6) 73 mmHg (35-45)
[2018-11-22] MEDS: ASPIRIN PO SCH (10:27)
[2018-11-22] MEDS: TOPROL XL PO SCH (10:27)
[2018-11-22] MEDS: PROTONIX IV SCH ×2 (10:28→21:19)
[2018-11-22] MEDS: PATIENT'S OWN MED PO SCH (10:28)
[2018-11-22] MEDS: SODIUM CHLORIDE 0.9% INJ SCH ×2 (10:28→21:19)
[2018-11-22] MEDS: NICODERM PATCH TD SCH ×2 (10:28→10:31)
--- NOTE | 2018-11-22 13:32 | PROGRESS NOTE ---
DATE: 11/22/2018 SUBJECTIVE: He is requesting solid food, so we are going to try him on a regular diet. OBJECTIVE: Vital signs: Temp 98.3 degrees, pulse 97, respirations 18, blood pressure 114/73. HEENT: Pupils are equal and round. Lungs: Clear in all lung wise. Cardiovascular: Regular rhythm and rate without murmur or S3. Abdomen: Soft. Skin: Warm, dry. LABORATORY: Blood sugar 134, 156, 266. ASSESSMENT AND PLAN: 1. Hypoxemic, hypercapnic respiratory failure. Improving with treatment of congestive heart failure in and underlying COPD. 2. Chronic atrial fibrillation. Rate is controlled. History of previous lower GI blood loss. Holding warfarin. He prefers to take aspirin. 3. Atherosclerotic coronary artery disease. Previous coronary bypass surgery. No sign of active ischemia. 4. Hypertension. Blood pressure well controlled. 5. Significant chronic obstructive pulmonary disease. 6. Obesity. 7. Diabetes mellitus type 2. We are going to advance his diet. Trying to find placement. Continue physical therapy. I do not see any change in regards to his orders. cc: Benitez Zhu MD
[2018-11-23] MEDS: PATIENT'S OWN MED PO SCH ×3 (00:51→21:01)
[2018-11-23] MEDS: HUMALOG SUBQ SCH ×6 (00:54→21:01)
[2018-11-23] MEDS: LASIX IV SCH ×2 (05:00→17:27)
[2018-11-23 05:25] LABS: ALLEN TEST YES; BE 16.8 mmoll (-3.0-3.0); BLOOD TYPE ARTERIAL; METHB 0.7 % (0.0-1.5); O2(CT) 10.9 mL/dL (15.0-23.0); O2HB 95.3 % (95.0-99.0); PO2(98.6) 96 mmHg (60-100); SAMPLE BLOOD; SAO2 97.8 % (95.0-100.0); pH(98.6) 7.43 (7.35-7.45)
[2018-11-23 05:46] LABS: MODALITY CANNULA; PCO2(98.6) 65 mmHg (35-45)
--- NOTE | 2018-11-23 07:14 | Diag Imaging Result Doc PS360 ---
EXAM: CHEST-PORTABLE 11/23/2018 HISTORY: dyspnea TECHNIQUE: AP portable at 0535 COMMENT: There is a right pleural effusion. There is slightly worsened alveolar opacity in the left upper lobe and the right lower lobe. IMPRESSION: Worsened pulmonary edema. Electronically signed by Marcel Solares 11/23/2018 7:11 AM
[2018-11-23 07:37] LABS: AGAP 9; BUN 26 mg/dL (8-22); CHLORIDE 94 mmol/L (98-107); COSMO 288; CREATININE 0.8 mg/dL (0.7-1.2); ESTIMATED GFR > 60; GLUCOSE 139 mg/dL (70-104); MAGNESIUM 1.8 mg/dL (1.5-2.7); POTASSIUM 3.3 mmol/L (3.5-5.1); SODIUM 141 mmol/L (136-145); TCO2 38 mmol/L (25-35)
[2018-11-23] MEDS: XOPENEX NEB INH PRN ×2 (08:18→20:38)
[2018-11-23] MEDS: ASPIRIN PO SCH (08:43)
[2018-11-23] MEDS: PROTONIX IV SCH (08:43)
[2018-11-23] MEDS: TOPROL XL PO SCH (08:43)
[2018-11-23] MEDS: NICODERM PATCH TD SCH (08:43)
[2018-11-23] MEDS: SODIUM CHLORIDE 0.9% INJ SCH (08:43)
--- NOTE | 2018-11-23 19:33 | PROGRESS NOTE ---
DATE: 11/23/2018 SUBJECTIVE: Mr. Herrera is feeling better. He is sitting up in a chair. He is eating regular food. He feels like he is a little stronger. Feels like he is making progress. OBJECTIVE: Vital Signs: Temp 98.5, pulse 97, respirations 19, blood pressure 133/66. HEENT: Pupils are equal and round. Lungs: Clear in all lung wise. Cardiovascular: Regular rhythm and rate without murmur or S3. Abdomen: Soft. Skin: Warm and dry. LABORATORY: Urine output was. 4800 mL. Blood sugar 156, 188, 106, 488. Chest x-ray from this morning. Worsened pulmonary edema. Right pleural effusion. Slightly worse alveolar opacity in the left upper lobe, the right lower lobe. ASSESSMENT AND PLAN: 1. Hypoxemic hypercapnic respiratory failure. Improving with treatment of congestive heart failure. His underlying COPD, radiographically seems to have a little more pulmonary edema. Currently he is getting Lasix 40 mg q.12. We may need to put him on fluid restriction, but overall seems to be getting stronger and feeling better. 2. Chronic atrial fibrillation. His rate is controlled. We are holding his Coumadin because of a history of a recent previous lower GI bleed. 3. Atherosclerotic coronary artery disease status post coronary bypass grafting. Had no sign of active ischemia. 4. Hypertension. Blood pressures appear to be well controlled. 5. COPD. No sign of airway difficulties such as wheezing. 6. Obesity. 7. Diabetes mellitus type 2. Blood sugars appear to be under fairly good control, although he did have 400 and 300 today and that is because he is eating, so we will probably have to increase his insulin or begin him on some insulin, and I think I will start him on some 70/30 twice a day of Humulin. I will go up on the Lasix to 60 mg IV twice a day. cc: Benitez Zhu MD
[2018-11-23] MEDS: KLOR-CON PO SCH (21:00)
[2018-11-23] MEDS: HUMULIN 70/30 SUBQ SCH (21:23)
[2018-11-24] MEDS: HUMALOG SUBQ SCH ×4 (01:08→14:26)
[2018-11-24 05:12] LABS: ALLEN TEST YES; BLOOD TYPE ARTERIAL; HCO3-(ACT) 37.3 mmoll (20.0-26.0); METHB 0.8 % (0.0-1.5); O2(CT) 10.6 mL/dL (15.0-23.0); O2HB 91.3 % (95.0-99.0); PO2(98.6) 60 mmHg (60-100); SAMPLE BLOOD; SAO2 94.2 % (95.0-100.0); THB 8.2 g/dL (11.5-17.4); pH(98.6) 7.44 (7.35-7.45)
[2018-11-24 05:14] LABS: MODALITY CANNULA; PCO2(98.6) 62 mmHg (35-45)
[2018-11-24] MEDS: LASIX IV SCH (05:21)
[2018-11-24] MEDS ORDERED: INSULIN PEN NEEDLES ONE (06:17)
[2018-11-24] MEDS ORDERED: PROTONIX PO SCH (07:00)
[2018-11-24] MEDS: PATIENT'S OWN MED PO SCH (08:47)
[2018-11-24] MEDS: TOPROL XL PO SCH (08:47)
[2018-11-24] MEDS: ASPIRIN PO SCH (08:47)
[2018-11-24] MEDS: HUMULIN 70/30 SUBQ SCH (08:47)
[2018-11-24] MEDS: KLOR-CON PO SCH (08:47)
--- NOTE | 2018-11-24 13:41 | DISCHARGE SUMMARY ---
ADMISSION DATE: 11/11/2018 DISCHARGE DATE: 11/24/2018 HISTORY OF PRESENT ILLNESS/HOSPITAL COURSE: The patient had a fall at the [facility]. A 73- year-old who came into the emergency room from [facility] after a fall. Very poor historian. At the time he was lethargic and disoriented x3. He has been having some abdominal pain and nausea. Denies any other symptoms. Was mostly non-conversant during the initial interview. Could not give any past medical history but believes he had been told he was in atrial fibrillation. Current diagnosis list from [place] showed vitamin D deficiency, hypertension, heart disease, heart failure, COPD, diabetes mellitus type 2, chronic atrial fibrillation, cardiomegaly, malignant neoplasm of prostate, iron deficiency anemia. Surgical history was noted for coronary artery bypass graft in the past. 1. So admission diagnosis was congestive heart failure with exacerbation. Did not have an echocardiogram so that was ordered to look at left ventricular function. Evaluate left ventricular ejection fraction and valvular function. 2. Respiratory acidosis patient with hypercapnic. Noticed some myoclonus on exam. He was disoriented x3 initially. 3. Metabolic encephalopathy, multifactorial. Probably related to his elevated CO2 and he had some hyperkalemia. 4. Hyperkalemia. Potassium 6.1. In the emergency room they gave him some D50 insulin and sodium bicarbonate and calcium gluconate. Potassium came down nicely. 5. Atrial fibrillation with rapid ventricular rate. Rate was started on Cardizem drip. Change to p.o. Cardizem for rate control. 6. Diabetes mellitus type 2. Was kept on pattern sugars and sliding scale. Cardiology was consulted. [place] he had hypoxemic hypercapnic respiratory failure due to a component of congestive heart failure which is diastolic and COPD and so continued diuresis as well as bronchodilators and antibiotics. He continued to show improvement. He had no sign of active cardiac ischemia and began to work on his strength as well. Chest x-ray, 11/16/2018. Cardiomegaly, pulmonary edema, probably right pleural effusion, atelectasis bibasilar. Infectious Disease was consulted. [place] he had pulmonary edema, probably right lung pneumonia as well so treated with antibiotic. Dr. Baltazar from Pulmonary evaluated and felt he had diastolic congestive heart failure with exacerbation, acute on chronic hypercapnic hypoxemic respiratory failure and pulmonary edema. So, continued diuresis and showed steady improvement. We worked on his weakness and he was receiving cefepime and Zyvox and seemed to radiographically show marked improvement. Patient's IgG was minimally decreased at 695. No clinical significance. His procalcitonin was 0.17 which pneumonia unlikely so the plan this stop his antibiotics and let him go to rehab on 11/24/2018. DISCHARGE MEDICATIONS: Dev packet which is arginine, glutamine, calcium 1 b.i.d., aspirin 325 mg a day. We will put him on Lasix p.o. 60 mg twice a day, Humulin 70/30 10 units twice a day was started here, Xopenex 0.63 mg inhalation q.4 h. p.r.n., Toprol-XL 25 mg a day, Protonix 40 mg a day, Klor-Con 40 mEq b.i.d., and continue physical therapy. cc: Benitez Zhu MD
[2018-11-24 14:49] VITALS: BP 121/61
== END 2018-11-24 16:49 | DRG 291 ==
LOC: ED 18:49 → EDIPHOLD 11-11 02:32 → SUATTDRO 11-11 02:32 → ICU 11-11 23:38 → 3S 11-15 14:05 → ICU 11-16 11:25 → 3N 11-20 22:34
PROVIDERS: ATTEND Emergency Medicine
CPT/HCPCS: 51702; 70450; 71010; 71045; 74230; 80048; 80053; 81001; 82140; 82270; 82550; 82728; 82784; 82805; 82948; 83036; 83540; 83550; 83735; 83880; 84100; 84134; 84145; 84443; 84484; 85014; 85018; 85025; 87040; 87070; 87205; 92611; 93005; 93010; 93306; 94640; 94660; 94760; 94761; 94762; 96372; 96374; 96375; 96376; 97110; 97163; 97530; 99285; 99291; A9270; C8929; C9113; J0610; J0692; J1650; J1815; J1940; J2020; J2405; Q9957; S0164; XXXXX